=== PATIENT | male | born 1960 | race Asian ===

== ENCOUNTER 2018-03-22 21:15 | Emergency (ER) | payer OTHER ==
[2018-03-22 21:29] VITALS: TEMP 98.2; BMI 30.7
--- NOTE | 2018-03-22 21:31 | PDOC ---
Rapid Medical Evaluation Chief Complaint: Blood Pressure Problem Time Seen by Provider: 03/22/18 21:25 Medical Evaluation: 03/22/18 21:25 I have performed a brief in-person evaluation of this patient. The patient presents with a chief complaint of: headache with sweating. Checked BP and found to be very high/ took multiple BP medication due to concerns . denies current complaints Pertinent physical exam findings: pale, some SOB at time but not now. I have ordered the following: ekg The patient will proceed to the ED for further evaluation 03/22/18 21:27 03/22/18 21:30 Discharge Disposition - Diagnosis History of blood pressure problems - Referrals - Patient Instructions - Post Discharge Activity
--- NOTE | 2018-03-22 23:12 | PDOC ---
Attending Attestation - Resident Resident Name: Cecy Rankin - ED Attending Attestation I have performed the following: I have examined & evaluated the patient, The case was reviewed & discussed with the resident, I agree w/resident's findings & plan, Exceptions are as noted - HPI HPI: 03/22/18 23:42 57 yo M h/o HTN, and DM He checked his BP at home it was 207/104 When this occurred, he developed head pain and blurry vision Denies chest pain, shortness of breath, nausea, vomiting He took his home meds prior to arrival in the ER C/o head pain, occipital PMD: Dr Galarza - Physicial Exam PE: 03/22/18 23:47 GENERAL: The patient is in no acute distress LUNGS: Breath sounds equal, clear to auscultation bilaterally HEART:Regular rate and rhythm, normal S1 and S2 without murmur, rub or gallop. ABDOMEN: Soft, nontender EXTREMITIES: Normal range of motion, no edema. NEUROLOGICAL: Cranial nerves II through XII grossly intact. Normal speech. No focal neurological deficits. MUSCULOSKELETAL: Back non-tender to palpation SKIN: Warm, Dry, normal turgor, no rashes or lesions noted. - Medical Decision Making 03/22/18 23:48 Twelve-lead EKG was performed and reviewed by me. There is normal sinus rhythm with a normal rate of 72 bpm. The axis is normal. The intervals are normal. There are no ST or T wave abnormalities. Pt presents to the ER due to elevated BP He took his home medications Upon arrival to the ER, BP nml Pt continues to have mild head pressure Has not taken tylenol for pain Refusing to stay for head ct Review of chart reveals neg stress test MRI with microvascular changes Will plan to discharge to home Follow up with PMD
--- NOTE | 2018-03-22 23:40 | PDOC ---
History of Present Illness - General Chief Complaint: Blood Pressure Problem Stated Complaint: HYPERTENSION Time Seen by Provider: 03/22/18 21:25 History Source: Patient - History of Present Illness Initial Comments: 03/22/18 23:56 57M w/ pmhx of HTN, DM, chronic tobacco user presents with complaints of elevated blood pressure today. He states his home BP reached 201/104 and had associated symptoms of blurred vision and sweating. As a result, he called EMS to be brought to the hospital for further evaluation. During this time, he denied alejandro/d, n/v, f/c, chest pain, sob, abd pain, urinary/bowel symptoms, leg swelling, difficulties walking. He states that has been taking his BP meds for many years, but only takes his medication when he sees that his BP is high. Of note, he was recently seen by his PCP, Dr. Galarza, in January. He reports he had a stress test and EKG done both of which were normal. PCP: Dr. Galarza PMHx: HTN, DM PSHx: nasal surgery, umbilical hernia repair FHx: Brother- HTN, DM Social: Current smoker, smokes 2 PPD x30 years; Denies alcohol or rec drug use. Pt currently works at a [employer]. Past History - Past Medical History Allergies/Adverse Reactions: Allergies Allergy/AdvReac Type Severity Reaction Status Date / Time No Known Allergies Allergy Verified 03/22/18 21:29 Home Medications: Ambulatory Orders Atenolol [Tenormin -] 100 mg PO DAILY 03/22/18 Sitagliptin Phos/Metformin HCl [Janumet Xr 50-1,000 mg Tablet] 1 each PO DAILY 03/22/18 Asthma: Yes COPD: No Diabetes: Yes HTN: Yes Hypercholesterolemia: Yes - Surgical History Abdominal Surgery: Yes (HERNIA) - Suicide/Smoking/Psychosocial Hx Smoking History: Current every day smoker Number of Cigarettes Smoked Daily: 40 Information on smoking cessation initiated: No Review of Systems - Review of Systems Able to Perform ROS?: Yes Is the patient limited Icelandic proficient: No Constitutional: Yes: Diaphoresis. No: Chills, Fever, Weakness HEENTM: Yes: Blurred Vision Respiratory: No: Orthopnea Cardiac (ROS): No: Chest Pain, Lightheadedness, Palpitations, Chest Tightness ABD/GI: No: Constipated, Diarrhea, Nausea, Vomiting Musculoskeletal: No: Back Pain Neurological: Yes: Headache *Physical Exam - Vital Signs Last Vital Signs Temp Pulse Resp BP Pulse Ox 98.2 F 75 18 132/86 98 03/22/18 21:23 03/22/18 21:23 18 21:23 03/22/18 21:23 03/22/18 21:23 - Physical Exam Comments: 03/23/18 00:07 GEN: NAD. AAOx3. HEENT: AT/NC. EOMI. KEANU. Facial symmetry noted. Moist mucus membranes. Neck: Supple, no LAD/JVD. Lungs: CTA B/L. No wheezes noted. Symmetric chest rise. Heart: RRR. Normal S1, S2. No murmurs noted. Abd: Obese. Soft NT/ND. +BS in all 4Q's. No masses/bruits noted. MSK: No peripheral edema noted. 5/5 muscle strength u/l b/l extremities. Neuro: CN II-XII intact. B/l facial sensation intact. Responds to commands. Medical Decision Making - Medical Decision Making 03/23/18 00:10 57M w/ pmhx of HTN, DM, chronic tobacco user presents with complaints of high blood pressure earlier today. -Pt BP redrawn, now 132/86 and stable. Pt's vitals unremarkable at this time. Pt complaining of headache that started during interview, PO Tylenol given. Pt had recent nuclear stress test and echocardiogram done this past January, and recently seen by Dr. Galarza 1 month ago. Explained to pt need to perform head CT that to r/o any possible new onset intracranial abnormalities, but pt deferred imaging at this time. Pt's BP stable, has no neurological deficits, and no significant complaints during interview. Instructed pt to follow up with Dr. Galarza for further evaluation of current BP medication regimen. DC to home. Case discussed with Dr. Aguilar. -Cecy Rankin, DO - PGY1 *DC/Admit/Observation/Transfer Diagnosis at time of Disposition: History of blood pressure problems - Discharge Dispostion Disposition: HOME Condition at time of disposition: Good Decision to Admit order: No - Referrals Referrals: Megan Galarza MD [Primary Care Provider] - - Patient Instructions Printed Discharge Instructions: DI for High Blood Pressure, How to Monitor Your Blood Pressure at Home Additional Instructions: You were seen in the ED for complaints of high blood pressure. In the ED, you were evaluated and found to have no acute condition at this time. Your blood pressure in the hospital was normal. You were given Tylenol for your headache. There is no need for hospitalization. You are being discharged home. Please continue taking your home medications as directed. Please also reduce your tobacco use as this can worsen your symptoms. Please follow up with your primary care physician, Dr. Galarza, within 1 week for your symptoms. If you experience worsening headaches, vision changes, persistent chest pain, shortness of breath, difficulty walking, problems with balance and coordination , please proceed to your nearest emergency room immediately. - Post Discharge Activity
[2018-03-22] MEDS ORDERED: ACETAMINOPHEN 325 MG TABLET (FP) PO ONE (23:56)
[2018-03-22] MEDS ORDERED: ACETAMINOPHEN 325 MG TABLET (FP) ONE (23:59)
[2018-03-23 00:02] VITALS: BP 130/74; PULSE 74
--- NOTE | 2018-03-23 16:29 | EKG ---
Test Reason : Blood Pressure : / mmHG Vent. Rate : 073 BPM Atrial Rate : 073 BPM P-R Int : 156 ms QRS Dur : 100 ms QT Int : 370 ms P-R-T Axes : 071 -05 044 degrees QTc Int : 407 ms NORMAL SINUS RHYTHM POSSIBLE LEFT ATRIAL ENLARGEMENT BORDERLINE ECG NO PREVIOUS ECGS AVAILABLE Confirmed by MD Nikki, Tan ([id number]) on 03/23/2018 4:29:10 PM Referred By: Confirmed By:Tan Jordan MD
--- NOTE | 2018-03-24 14:11 | EKG ---
Test Reason : Blood Pressure : / mmHG Vent. Rate : 072 BPM Atrial Rate : 072 BPM P-R Int : 148 ms QRS Dur : 106 ms QT Int : 382 ms P-R-T Axes : 073 002 045 degrees QTc Int : 418 ms NORMAL SINUS RHYTHM POSSIBLE LEFT ATRIAL ENLARGEMENT INCOMPLETE RIGHT BUNDLE BRANCH BLOCK BORDERLINE ECG WHEN COMPARED WITH ECG OF 22-MAR-2018 21:32, NO SIGNIFICANT CHANGE WAS FOUND Confirmed by LUZMARIA LEIVA, JOYCE ([id number]) on 03/24/2018 2:10:41 PM Referred By: Confirmed By:JOYCE DUTTA MD
== END 2018-03-23 00:03 | disposition home or self-care (01) ==
LOC: JER 21:15
DX: I10 Essential (primary) hypertension (principal); E78.00 Pure hypercholesterolemia, unspecified; E11.9 Type 2 diabetes mellitus without complications; Z79.84 Long term (current) use of oral hypoglycemic drugs; F17.210 Nicotine dependence, cigarettes, uncomplicated
CPT/HCPCS: 93005; 93010; 99282-25

== ENCOUNTER 2018-03-30 18:17 | Emergency (ER) | payer OTHER ==
--- NOTE | 2018-03-30 18:35 | PDOC ---
Rapid Medical Evaluation Chief Complaint: Blood Pressure Problem Time Seen by Provider: 03/30/18 18:32 Medical Evaluation: Allergies Allergy/AdvReac Type Severity Reaction Status Date / Time No Known Allergies Allergy Verified 03/22/18 21:29 03/30/18 18:32 I have performed a brief in person evaluation. The patient presents with a CC of : HTN HPI: Pt is a 57 YO male who has a hx HTN and states he has been checking it at home and it is "high." Pt denies HOLLAND, denies visual disturbances, denies CP. Pt 's BP is 123/79 at triage. PE: Skin: Clear Lungs: Clear Heart: RRR MS: Moves all extremities without difficulty Neuro: Alert Psych: Appropriate affect I have ordered the following: nothing at this time. The patient will proceed to the ED for further evaluation. Discharge Disposition - Diagnosis Hypertension Qualifiers: Hypertension type: unspecified Qualified Code(s): I10 - Essential (primary) hypertension - Referrals Referrals: Megan Galarza MD [Primary Care Provider] - - Patient Instructions - Post Discharge Activity
[2018-03-30 18:40] VITALS: BP 123/79; PULSE 70; TEMP 98.6; BMI 29.8
--- NOTE | 2018-03-30 20:06 | PDOC ---
History of Present Illness - General Chief Complaint: Blood Pressure Problem Stated Complaint: Blood Pressure Problem Time Seen by Provider: 03/30/18 18:32 - History of Present Illness Initial Comments: 03/30/18 20:01 57 yo M with h/o HLD, DM, HTN who p/w HTN. Patient reports isolated elevated SBP of 160 this evening. Checks BP 2-3 / day. States that BP 114/60 10 minutes before elevated BP reading. Compliant with daily Amlodipine. Currently asymptomatic. Patient denies N/V, F,C, palpitations, orthopnea, PND, leg pain/swelling, CP, SOB, urinary complaints, abdominal pain, diarrhea, constipation, lightheadedness , weakness, sensory changes. PMHx: as noted above ROS: as noted Allergies: NKDA Past History - Past Medical History Allergies/Adverse Reactions: Allergies Allergy/AdvReac Type Severity Reaction Status Date / Time No Known Allergies Allergy Verified 03/30/18 18:36 Home Medications: Ambulatory Orders Atenolol [Tenormin -] 100 mg PO DAILY 03/22/18 Sitagliptin Phos/Metformin HCl [Janumet Xr 50-1,000 mg Tablet] 1 each PO DAILY 03/22/18 Asthma: Yes COPD: No Diabetes: Yes HTN: Yes Hypercholesterolemia: Yes - Surgical History Abdominal Surgery: Yes (HERNIA) - Suicide/Smoking/Psychosocial Hx Smoking History: Current some day smoker Number of Cigarettes Smoked Daily: 40 Information on smoking cessation initiated: Yes 'Breaking Loose' booklet given: 03/30/18 Hx Alcohol Use: No Drug/Substance Use Hx: No Review of Systems - Review of Systems Comments:: 03/30/18 20:01 GENERAL/CONSTITUTIONAL: No fever or chills. No weakness. HEAD, EYES, EARS, NOSE AND THROAT: No change in vision. No ear pain or discharge. No sore throat. CARDIOVASCULAR: No chest pain or shortness of breath RESPIRATORY: No cough, wheezing, or hemoptysis. GASTROINTESTINAL: No nausea, vomiting, diarrhea or constipation. GENITOURINARY: No dysuria, frequency, or change in urination. MUSCULOSKELETAL: No joint or muscle swelling or pain. No neck or back pain. SKIN: No rash NEUROLOGIC: No headache, vertigo, loss of consciousness, or change in strength/ sensation. ENDOCRINE: No increased thirst. No abnormal weight change HEMATOLOGIC/LYMPHATIC: No anemia, easy bleeding, or history of blood clots. ALLERGIC/IMMUNOLOGIC: No hives or skin allergy. *Physical Exam - Vital Signs Last Vital Signs Temp Pulse Resp BP Pulse Ox 98.6 F 70 18 123/79 100 03/30/18 18:36 03/30/18 18:36 03/30/18 18:36 03/30/18 18:36 03/30/18 18:36 - Physical Exam Comments: 03/30/18 20:01 GENERAL: Awake, alert, and fully oriented, in no acute distress HEAD: No signs of trauma, normocephalic, atraumatic EYES: PERRLA, EOMI, sclera anicteric, conjunctiva clear ENT: Hearing grossly normal, nares patent, oropharynx clear without exudates. Moist mucosa NECK: Normal ROM, supple, no lymphadenopathy, JVD, or masses LUNGS: No distress, speaks full sentences, clear to auscultation bilaterally HEART: Regular rate and rhythm, normal S1 and S2, no murmurs, rubs or gallops, peripheral pulses normal and equal bilaterally. ABDOMEN: Soft, nontender, normoactive bowel sounds. No guarding, no rebound. No masses EXTREMITIES : Normal inspection, Normal range of motion, no edema. No clubbing or cyanosis. NEUROLOGICAL: Cranial nerves II through XII grossly intact. Normal speech, normal gait, no focal sensorimotor deficits Medical Decision Making - Medical Decision Making 03/30/18 20:40 57 yo M with h/o HLD, DM, HTN who p/w HTN. VSS, AF. Currently asymptomatic. Absent physical exam findings. Pt. w/out evidence of HTN emergency, end organ dysfunction. Low suspicion FL, PE, Pulm edema. ED Course: Pt. stable for d/c with return precautions. Advised to f/u with PMD. *DC/Admit/Observation/Transfer Diagnosis at time of Disposition: Hypertension Qualifiers: Hypertension type: unspecified Qualified Code(s): I10 - Essential (primary) hypertension - Discharge Dispostion Condition at time of disposition: Stable Decision to Admit order: No - Referrals Referrals: Megan Galarza MD [Primary Care Provider] - - Patient Instructions Printed Discharge Instructions: DI for High Blood Pressure Additional Instructions: Please return to the emergency department with any new or worsening symptoms or concerns. Please follow up with your primary care physician within 72 hours. - Post Discharge Activity - Attestations Physician Attestion: 03/30/18 20:05 I attest to the information provided in this note.
--- NOTE | 2018-03-30 20:48 | PDOC ---
Attending Attestation - Resident Resident Name: Zia Anderson - ED Attending Attestation I have performed the following: I have examined & evaluated the patient, The case was reviewed & discussed with the resident, I agree w/resident's findings & plan, Exceptions are as noted - Medical Decision Making 03/30/18 20:42 A portion of this note was documented by scribe services under my direction. I have reviewed the details of the note, within reason, and agree with the documentation with the following case summary and management plan written by me. Patient treated in the ED. Nursing notes are reviewed and incorporated into the medical decision-making. Vital signs reviewed. Vital Signs Temp Pulse Resp BP Pulse Ox 98.6 F 70 18 123/79 100 03/30/18 18:36 03/30/18 18:36 03/30/18 18:36 03/30/18 18:36 03/30/18 18:36 57-year-old male with past mental history of hypertension, diabetes, hyperlipidemia presents with asymptomatic hypertension to systolic to 160s. The patient frequently checks blood pressure 3 times a day. He states that he gets nervous when he doesn't check his blood pressure. Never endorse any chest pain or shortness of breath or palpitations. Patient reports appearance to his hypertension medications. Noted is systolic to 160 so came to the ER. Patient blood pressure is 123/79 and with no acute findings. I advised patient that he should follow-up with his private care physician. At this time, no indication for any further workup. I advised that he continues to his blood pressure medications. I suspect the patient is feeling anxious when he does not take his own blood pressure home. I advised him to space out his blood pressure checks once every several days. Patient family at bedside who agrees with the plan. Patient wanted to go home. <Roberto Street - Last Filed: 03/30/18 20:42> - HPI HPI: 03/30/18 20:51 The patient is a 57 year old male with a significant PMH of hypertension, diabetes, asthma, and hypercholesterolemia who presents to the emergency department with elevated blood pressure since earlier today. The patient reports that he was at home today when he measured his blood pressure to be above his normal baseline. He states that he measured it at about 160 systolic when its usually about 114. The patient denies any other symptoms. He denies any fever, chills, nausea, vomiting, diarrhea, constipation or urinary symptoms. He denies any chest pain, shortness of breath, headache or dizziness. The patient denies any other complaints. PCP:Dr. Galarza - Physicial Exam PE: 03/30/18 20:51 GENERAL: Awake, alert, and fully oriented, in no acute distress HEAD: No signs of trauma EYES: PERRLA, EOMI, sclera anicteric, conjunctiva clear ENT: Auricles normal inspection, hearing grossly normal, nares patent, oropharynx clear without exudates. Moist mucosa NECK: Normal ROM, supple, JVD, or masses EXTREMITIES: Normal range of motion, no edema. No clubbing or cyanosis. No cords, erythema, or tenderness NEUROLOGICAL: Cranial nerves II through XII grossly intact. Normal speech, normal gait SKIN: Warm, Dry, normal turgor, no rashes or lesions noted. Documentation prepared by Jean Paul Franco, acting as biomedical engineering director for Roberto Street MD. <Jean Paul Franco - Last Filed: 03/30/18 20:51>
== END 2018-03-30 21:57 | disposition home or self-care (01) ==
LOC: JER 18:17
DX: I10 Essential (primary) hypertension (principal); E11.9 Type 2 diabetes mellitus without complications; Z79.84 Long term (current) use of oral hypoglycemic drugs; E78.00 Pure hypercholesterolemia, unspecified; J45.909 Unspecified asthma, uncomplicated
CPT/HCPCS: 99281-25

== ENCOUNTER 2018-04-23 20:27 | Emergency (ER) | payer OTHER ==
[2018-04-23 20:41] VITALS: TEMP 98; BMI 30.7
--- NOTE | 2018-04-23 20:47 | PDOC ---
History of Present Illness - General Chief Complaint: Chest Pain Stated Complaint: CHEST PAIN Time Seen by Provider: 04/23/18 20:30 History Source: Patient Exam Limitations: Language Barrier - History of Present Illness Initial Comments: 57 yo M with h/o HLD, DM, HTN BIBEMS because earlier today he experienced "severe" Sub-sternal chest pain rated 4/10 in intensity. He said the chest pain was so bad that he vomited. The vomitus was NBNB. He states this has never happened before. He currently has no chest pain. He also experienced a bad headache earlier today which has now resolved. When asked why he is in the emergency room he states because my blood pressure is not under control. At bedside his BP is 119/81. He currently has no complaints but was in significant pain earlier today. He denies any SOB or difficulty breathing. Denies any current dizziness, blurry vision, weakness, numbness, tingling, or chills. PCP: Dr. Galarza Allergies: NKA, NKDA Social Hx: Smokes 1 PPD Past History - Past Medical History Allergies/Adverse Reactions: Allergies Allergy/AdvReac Type Severity Reaction Status Date / Time No Known Allergies Allergy Verified 04/23/18 20:40 Home Medications: Ambulatory Orders Atenolol [Tenormin -] 100 mg PO DAILY 03/22/18 Sitagliptin Phos/Metformin HCl [Janumet Xr 50-1,000 mg Tablet] 1 each PO DAILY 03/22/18 Atenolol [Tenormin] 150 mg PO HS 04/23/18 Asthma: Yes COPD: No Diabetes: Yes HTN: Yes Hypercholesterolemia: Yes - Surgical History Abdominal Surgery: Yes (HERNIA) - Suicide/Smoking/Psychosocial Hx Smoking History: Current every day smoker Have you smoked in the past 12 months: No Number of Cigarettes Smoked Daily: 40 Information on smoking cessation initiated: No 'Breaking Loose' booklet given: 03/30/18 Hx Alcohol Use: No Drug/Substance Use Hx: No Review of Systems - Review of Systems Comments:: CONSTITUTIONAL: Absent: fever, no chills, no fatigue EYES: Absent: visual changes ENT: Absent: ear pain, no sore throat CARDIOVASCULAR: Present: Chest pain Absent: no palpitations RESPIRATORY: Absent: cough, no SOB GI: Present: Nausea, Vomiting Absent: abdominal pain, no constipation, no diarrhea GENITOURINARY: Absent: dysuria, no frequency, no hematuria MUSKULOSKELETAL: Absent: back pain, no arthralgia, no myalgia SKIN: Absent: rash NEURO: Present: headache *Physical Exam - Vital Signs Last Vital Signs Temp Pulse Resp BP Pulse Ox 98.0 F 72 18 117/73 96 04/23/18 20:40 04/23/18 20:40 04/23/18 20:40 04/23/18 20:40 04/23/18 20:40 - Physical Exam Comments: GENERAL: Well-appearing, well-nourished. No apparent distress. HEENT: Normocephalic, atraumatic. PERRL, EOM intact. CARDIOVASCULAR: Normal S1, S2. Regular rate and rhythm. PULMONARY: Clear to auscultation bilaterally. ABDOMEN: Soft, non-distended, non-tender. EXTREMITIES: Normal ROM in all four extremities. No gross deformities. SKIN: Warm, dry. No rash NEUROLOGICAL: No focal neurological deficits. Moderate Sedation - Procedure Monitoring Vital Signs: Procedure Monitoring Vital Signs Temperature 98.0 F 04/23/18 20:40 Pulse Rate 72 04/23/18 20:40 Respiratory Rate 18 04/23/18 20:40 Blood Pressure 117/73 04/23/18 20:40 O2 Sat by Pulse Oximetry (%) 96 04/23/18 20:40 ED Treatment Course - LABORATORY CBC & Chemistry Diagram: 04/23/18 21:26 04/23/18 21:25 Medical Decision Making - Medical Decision Making 57 yo M with h/o HLD, DM, HTN BIBEMS because earlier today he experienced "severe" Sub-sternal chest pain rated 4/10 in intensity. He said the chest pain was so bad that he vomited. The vomitus was NBNB. DDx IBNLT: ACS/FL, GERD, pancreatitis, costochondritis, pulm edema, pleural effusion. Plan: Cbc, Cmp, Trop x 2, Lipase, CXR, EKG, re-assess. Labs WNL, CXR unremarkable. Trop x 2 negative. Patient has not experienced any chest pain, arrhythmias, or abnormal vitals since 2 hours prior to arrival. Will DC patient with Cardio FU. *DC/Admit/Observation/Transfer Diagnosis at time of Disposition: Atypical chest pain - Discharge Dispostion Disposition: HOME Condition at time of disposition: Stable Decision to Admit order: No - Referrals Referrals: Ramin Schmidt MD [Staff Physician] - - Patient Instructions Printed Discharge Instructions: DI for Atypical Chest Pain Additional Instructions: You came into the ER with chest pain. You did not have any chest pain in the ER. We made sure you did not have a heart attack. Please make sure to schedule a follow up appointment with your rib bender in the next 3 days - Dr. Heart. Come back to the ER if your pain worsens, you start vomiting, or have any other new or worsening concerns. Thank you for coming to the [facility] ER. We hope you feel better soon! Print Language: SERBIAN - Post Discharge Activity
[2018-04-23 21:35] LABS: BASO % 0.6 % (0-2.0); EOS % 2.3 % (0-4.5); HEMATOCRIT 36.9 % (35.4-49); HEMOGLOBIN 13.2 GM/dL (11.7-16.9); MCH 32.2 pg (25.7-33.7); MCHC 35.9 g/dl (32.0-35.9); MEAN CELL VOLUME 89.8 fl (80-96); MEAN PLT VOLUME 8.2 fl (7.5-11.1); MONO % 6.8 % (3.8-10.2); NEUT % 61.3 % (42.8-82.8); PLATELET COUNT 296 K/MM3 (134-434); RBC 4.11 M/mm3 (4.00-5.60); RDW 14.1 % (11.9-15.9); WHITE BLOOD COUNT 8.7 K/mm3 (4.0-10.0)
[2018-04-23 22:02] LABS: ALBUMIN 3.8 g/dl (3.4-5.0); ALK PHOS 86 U/L (45-117); ANION GAP 7 MMOL/L (8-16); BILIRUBIN,TOTAL 0.4 mg/dL (0.2-1); BLOOD UREA NITROGEN 19 mg/dL (7-18); CALCIUM 9.3 mg/dL (8.5-10.1); CHLORIDE 102 mmol/L (98-107); CO2 29 mmol/L (21-32); CREATININE 0.9 mg/dL (0.55-1.3); GLUCOSE,RANDOM 182 mg/dL (74-106); LIPASE 142 U/L (73-393); SGOT/AST 14 U/L (15-37); SGPT/ALT 24 U/L (13-61); SODIUM 138 mmol/L (136-145); TOT PROT 6.7 g/dl (6.4-8.2)
--- NOTE | 2018-04-23 22:03 | PDOC ---
Attending Attestation - HPI HPI: This patient is a 57 M, PMHx of HLD, DM, HTN, who was BIBA for chest pain 2 hours prior to arrival to the ER. Patient rates chest pain 4/10, with associated nausea,vomting, headache. Patient states that he has had this type of headache in past. Patient reports no chest pain while in the ER. No current complaints. Patient denies taking any medication for the pain. He denies any SOB or difficulty breathing. Denies any current dizziness, blurry vision, weakness, numbness, tingling, or chills. Social Hx: smokes a pack a day PCP: Dr. Galarza <Willow Hung - Last Filed: 04/23/18 23:43> - Resident Resident Name: Isak Grey - ED Attending Attestation I have performed the following: I have examined & evaluated the patient, The case was reviewed & discussed with the resident, I agree w/resident's findings & plan - Physicial Exam PE: 04/25/18 01:08 Agree with resident exam - Medical Decision Making 04/25/18 01:09 Pt comes for elevated BP at home. He states that he took extra BP meds and it came down. Pt feels that he needs a higher dose of meds. Pt will be sent back to his PMD for medication adjustment. 04/25/18 01:10 All labs and serial cardiac enzymes are normal. <Bella Sinha - Last Filed: 04/25/18 01:11>
[2018-04-24 00:31] VITALS: BP 129/75; PULSE 75
--- NOTE | 2018-04-25 12:24 | EKG ---
Test Reason : Blood Pressure : / mmHG Vent. Rate : 062 BPM Atrial Rate : 062 BPM P-R Int : 166 ms QRS Dur : 114 ms QT Int : 412 ms P-R-T Axes : 069 004 047 degrees QTc Int : 418 ms NORMAL SINUS RHYTHM POSSIBLE LEFT ATRIAL ENLARGEMENT LOW VOLTAGE QRS INCOMPLETE RIGHT BUNDLE BRANCH BLOCK BORDERLINE ECG WHEN COMPARED WITH ECG OF 22-MAR-2018 23:44, NO SIGNIFICANT CHANGE WAS FOUND Confirmed by ALBER BELTRÁN MD ([id number]) on 04/25/2018 12:23:59 PM Referred By: Confirmed By:ALBER BELTRÁN MD
== END 2018-04-24 01:58 | disposition home or self-care (01) ==
LOC: JER 20:27
DX: R07.89 Other chest pain (principal); I10 Essential (primary) hypertension; E78.5 Hyperlipidemia, unspecified; E11.9 Type 2 diabetes mellitus without complications; J45.909 Unspecified asthma, uncomplicated; F17.210 Nicotine dependence, cigarettes, uncomplicated; Z79.84 Long term (current) use of oral hypoglycemic drugs
CPT/HCPCS: 36415; 71046-TC-FY; 80053; 83690; 84484; 85025; 93005; 93010; 99285-25

== ENCOUNTER 2018-04-25 15:55 | Emergency (ER) | payer OTHER ==
[2018-04-25 16:11] VITALS: BMI 30.3
--- NOTE | 2018-04-25 16:23 | PDOC ---
History of Present Illness - General Chief Complaint: Cold Symptoms Stated Complaint: HIGH BLOOD ,SOB Time Seen by Provider: 04/25/18 16:14 - History of Present Illness Initial Comments: 04/25/18 16:22 57 yo M with h/o HTN, HLD, DM who p/w myalgias, and headache. Patient reports ongoing, dull posterior headache x 2-3 days with worsening seveirty overnight. No associated photo/phonophobia, neck stiffness/meningismus, aura, vision change /scintillating scotomas, convulsions. Also endorses BL shoulder, and BL lateral neck pain/cramping, with no identifiable triggers or alleviators. Attempted analgesia yesterday evening with ASA, no relief. + Subjective fevers and chills x 1 day. + diaphoresis x 1 day. Patient denies cough, wheezing, orthopnea, PND, leg pain/swelling, dysphagia, N/ V, CP, SOB, urinary complaints, abdominal pain, diarrhea, constipation, hematuria, BPR, lightheadedness, weakness, sensory changes. PMHx: as noted above. Denies h/o ACS/AZ, stent placement, CABG ROS: as noted SHx: 1 ppd tobacco x 15 years. Denies Etoh, IVDA. Allergies: NKDA Past History - Past Medical History Allergies/Adverse Reactions: Allergies Allergy/AdvReac Type Severity Reaction Status Date / Time No Known Allergies Allergy Verified 04/25/18 16:11 Home Medications: Ambulatory Orders Atenolol [Tenormin -] 100 mg PO DAILY 03/22/18 Sitagliptin Phos/Metformin HCl [Janumet Xr 50-1,000 mg Tablet] 1 each PO BID 04/27 Atenolol [Tenormin] 50 mg PO HS 04/23/18 Amlodipine Besylate/Benazepril [Lotrel 5-20 mg Capsule] 1 each PO BID 04/25/18 Clopidogrel Bisulfate [Plavix] 75 mg PO DAILY 04/25/18 Lolita-3/Dha/Epa/Fish Oil [Lolita 3 500 Softgel] 2 each PO BID 04/25/18 Asthma: Yes COPD: No CHF: No Diabetes: Yes HTN: Yes Hypercholesterolemia: Yes - Surgical History Abdominal Surgery: Yes (HERNIA) - Suicide/Smoking/Psychosocial Hx Smoking History: Current every day smoker Have you smoked in the past 12 months: No Number of Cigarettes Smoked Daily: 20 Information on smoking cessation initiated: No 'Breaking Loose' booklet given: 03/30/18 Hx Alcohol Use: No Drug/Substance Use Hx: No Review of Systems - Review of Systems Comments:: 04/25/18 16:22 GENERAL/CONSTITUTIONAL: No fever or chills. No weakness. HEAD, EYES, EARS, NOSE AND THROAT: No change in vision. No ear pain or discharge. No sore throat. CARDIOVASCULAR: No chest pain or shortness of breath RESPIRATORY: No cough, wheezing, or hemoptysis. GASTROINTESTINAL: No nausea, vomiting, diarrhea or constipation. GENITOURINARY: No dysuria, frequency, or change in urination. MUSCULOSKELETAL: +muscle pain. No neck or back pain. SKIN: No rash NEUROLOGIC: + headache. No vertigo, loss of consciousness, or change in strength /sensation. ENDOCRINE: No increased thirst. No abnormal weight change HEMATOLOGIC/LYMPHATIC: No anemia, easy bleeding, or history of blood clots. ALLERGIC/IMMUNOLOGIC: No hives or skin allergy. *Physical Exam - Vital Signs Last Vital Signs Temp Pulse Resp BP Pulse Ox 97.8 F 77 16 127/66 100 04/25/18 15:55 04/25/18 15:55 04/25/18 15:55 04/25/18 15:55 04/25/18 15:55 - Physical Exam Comments: 04/25/18 16:22 GENERAL: Awake, alert, and fully oriented, in no acute distress HEAD: No signs of trauma, normocephalic, atraumatic EYES: PERRLA, EOMI, sclera anicteric, conjunctiva clear ENT: Hearing grossly normal, nares patent, oropharynx clear without exudates. Moist mucosa Neg Brudinski and kernig sign. NECK: Normal ROM, supple, no lymphadenopathy, JVD, or masses LUNGS: BL insp rhonci. Absent rales. No distress, speaks full sentences. HEART: Regular rate and rhythm, normal S1 and S2, no murmurs, rubs or gallops, peripheral pulses normal and equal bilaterally. ABDOMEN: Soft, nontender, normoactive bowel sounds. No guarding, no rebound. No masses EXTREMITIES : Normal inspection, Normal range of motion, no edema. No clubbing or cyanosis. SKIN: Warm, Dry, normal turgor, no rashes or lesions noted Moderate Sedation - Procedure Monitoring Vital Signs: Procedure Monitoring Vital Signs Temperature 97.8 F 04/25/18 15:55 Pulse Rate 77 04/25/18 15:55 Respiratory Rate 16 04/25/18 15:55 Blood Pressure 127/66 04/25/18 15:55 O2 Sat by Pulse Oximetry (%) 100 04/25/18 15:55 ED Treatment Course - LABORATORY CBC & Chemistry Diagram: 04/25/18 14:53 04/25/18 14:53 Medical Decision Making - Medical Decision Making 04/25/18 16:44 57 yo M with h/o HTN, HLD, DM who p/w myalgias, and headache, and dull posterior headache. VSS, AF, A&Ox3. Lungs BL LL wheezing. Physical exam otherwise unremarkable. ACS/AZ r/o. R/o PNA. Will consider COPD, asthma, Influenza. Absent nuchal rigidity, neg burdinski/kernig, neuro deficits. Low suspicion SAH, hemaotma, meningitis. Will provide analgesia. ED Course: CBC,CMP,CARDIAC EKG, CXR Tylenol, NS, Reglan CTH 04/25/18 17:16 Flu: Neg 04/25/18 17:39 CBC, CMP: Unremarkable 04/25/18 18:16 CXR: Unremarkable Patient headache improved. Pending CTH report Patient stable for d/c with return precautions. Advised to f/u with PMD Patient endorsed to night team. If CTH negative, stable for d/c with return precautions. Counseled on pain control. *DC/Admit/Observation/Transfer Diagnosis at time of Disposition: Headache Qualifiers: Headache type: tension-type Headache chronicity pattern: chronic headache Intractability: not intractable Qualified Code(s): G44.229 - Chronic tension- type headache, not intractable - Discharge Dispostion Condition at time of disposition: Stable Decision to Admit order: No - Referrals Referrals: Megan Galarza MD [Primary Care Provider] - - Patient Instructions Printed Discharge Instructions: DI for Headache Additional Instructions: Please return to the emergency department with any new or worsening symptoms or concerns. Please follow up with your primary care physician within 72 hours. Can take Iburprofen 600 mg every 4-6 hours for pain. - Post Discharge Activity - Attestations Physician Attestion: 04/25/18 16:23 I attest to the information provided in this note.
[2018-04-25] MEDS ORDERED: SODIUM CHLORIDE 1,000 ML IV STA (16:50)
[2018-04-25] MEDS ORDERED: ACETAMINOPHEN 1000 MG/100 ML VIAL (NON FORMULARY) IVPB ONE (16:50)
[2018-04-25] MEDS ORDERED: ACETAMINOPHEN INJECTION 100 ML IVPB ONE (16:58)
[2018-04-25 17:09] LABS: BASO % 0.5 % (0-2.0); HEMOGLOBIN 13.8 GM/dL (11.7-16.9); MCH 32.6 pg (25.7-33.7); MONO % 7.6 % (3.8-10.2)
[2018-04-25] MEDS ORDERED: METOCLOPRAMIDE HCL INJECTION 10 MG/2 ML VIAL IVPUSH ONE (17:24)
[2018-04-25] MEDS ORDERED: METOCLOPRAMIDE HCL INJECTION 10 MG/2 ML VIAL ONE (17:32)
[2018-04-25 17:37] LABS: ALK PHOS 87 U/L (45-117); ANION GAP 9 MMOL/L (8-16); BILIRUBIN,TOTAL 0.2 mg/dL (0.2-1); BLOOD UREA NITROGEN 22 mg/dL (7-18); CALCIUM 9.1 mg/dL (8.5-10.1); CHLORIDE 102 mmol/L (98-107); CO2 27 mmol/L (21-32); GLUCOSE,RANDOM 160 mg/dL (74-106); POTASSIUM 3.9 mmol/L (3.5-5.1); SGOT/AST 21 U/L (15-37); SGPT/ALT 27 U/L (13-61); SODIUM 138 mmol/L (136-145); TOT PROT 6.9 g/dl (6.4-8.2)
[2018-04-25 17:49] LABS: HEMATOCRIT 38.3 % (35.4-49); LYMPH % 27.7 % (8-40); MCHC 36.1 g/dl (32.0-35.9); MEAN CELL VOLUME 90.5 fl (80-96); MEAN PLT VOLUME 8.4 fl (7.5-11.1); NEUT % 62.2 % (42.8-82.8); PLATELET COUNT 313 K/MM3 (134-434); RBC 4.24 M/mm3 (4.00-5.60); RDW 13.7 % (11.9-15.9); WHITE BLOOD COUNT 8.9 K/mm3 (4.0-10.0)
--- NOTE | 2018-04-25 17:58 | PDOC ---
Attending Attestation - Resident Resident Name: Zia Anderson - ED Attending Attestation I have performed the following: I have examined & evaluated the patient, The case was reviewed & discussed with the resident, I agree w/resident's findings & plan, Exceptions are as noted - HPI HPI: 04/25/18 17:53 The patient is a 57-year-old male with a past medical history significant for HTN, HLD, and DM presents to the emergency department with a headache and myalgia. The patient reports 2-3 days of generalized myalgias accompanied with a dull gradual onset posterior headache that radiates down to the shoulders. The patient reports the radiating pain is crampy in nature. He states these symptoms often come on when his blood pressure is high. The patient reports an additional concern of diffuse neck pain and b/l LE pain. HE denies denies neck stiffness or difficulty swallowing reports taking aspirin for the symptoms, without relief. The patient states a new onset symptom of subjective fever and chills. The patient was seen at the ER on 04/23/18 for similar symptoms of a headache and chest pain, with unremarkable workup. Today, denies chest pain, shortness of breath, abdominal pain, N/V/D, urinary symptoms, changes in bowel habits, focal weakness, numbness or tingling. Allergies: NKDA Social history: Current daily smoker. No alcohol or drug use. Surgical history: Hernia repair. PCP: Dr. Galarza. - Physicial Exam PE: 04/25/18 17:58 GENERAL: Awake, alert, and fully oriented, in no acute distress HEAD: No signs of trauma EYES: PERRLA, EOMI, sclera anicteric, conjunctiva clear ENT: Auricles normal inspection, hearing grossly normal, nares patent, oropharynx clear without exudates. Moist mucosa NECK: Normal ROM, supple, no lymphadenopathy, JVD, or masses. No meningismus LUNGS: Breath sounds equal, clear to auscultation bilaterally. No wheezes, and no crackles HEART: Regular rate and rhythm, normal S1 and S2, no murmurs, rubs or gallops ABDOMEN: Soft, nontender, normoactive bowel sounds. No guarding, no rebound. No masses EXTREMITIES: Normal range of motion, no edema. No cords, erythema, or tenderness NEUROLOGICAL: Normal speech, cranial nerves intact, negative pronator drift, 5/ 5 strength in all 4 extremities, normal sensation to light touch in all 4 extremities, normal cerebellar exam, normal gait, normal tone SKIN: Warm, Dry, normal turgor, no rashes or lesions noted. - Medical Decision Making 04/25/18 17:59 57yo M hx HTN, HL, DM presents to the ED with elevated BP, diffuse body pain and headache. Vitals wnl. Exam wnl, no evidence of meningismus and pt is neuro intact. This is pt's second visit to ED for headache. Will obtain CTH. With regards to myalgia's, subjective fever, plan to check labs, flu swab. Will treat symptoms and reassess. 04/25/18 18:59 Labs/flu swab wnl CXR clear on my read Pt currently at CTH Dispo pending CTH and re-evaluation PT signed out to oncoming attending for reassessment, dispo Heart Score/ECG Review #1 04/25/18 18:02 Twelve-lead EKG was performed and reviewed by me. Normal sinus rhythm, rate 65. Normal axis. No ST elevations or T-wave inversions. Intraventricular conduction delay. When compared to EKG from 04/23/2018, no significant changes.
[2018-04-25 19:52] VITALS: BP 117/61; PULSE 70; TEMP 97.9
--- NOTE | 2018-04-26 09:52 | EKG ---
Test Reason : Blood Pressure : / mmHG Vent. Rate : 065 BPM Atrial Rate : 065 BPM P-R Int : 168 ms QRS Dur : 122 ms QT Int : 408 ms P-R-T Axes : 067 -06 049 degrees QTc Int : 424 ms NORMAL SINUS RHYTHM POSSIBLE LEFT ATRIAL ENLARGEMENT NON-SPECIFIC INTRA-VENTRICULAR CONDUCTION DELAY BORDERLINE ECG WHEN COMPARED WITH ECG OF 23-APR-2018 20:48, NO SIGNIFICANT CHANGE WAS FOUND Confirmed by NAVI LEIVA, ANGELIQUE ([id number]) on 04/26/2018 9:52:22 AM Referred By: Confirmed By:ANGELIQUE MCELROY MD
== END 2018-04-25 20:08 | disposition home or self-care (01) ==
LOC: JER 15:55
PROC: 3E033NZ Introduction of Analgesics, Hypnotics, Sedatives into Peripheral Vein, Percutaneous Approach (ICD-10-PCS; principal; 2018-04-25)
PROC: 3E033GC Introduction of Other Therapeutic Substance into Peripheral Vein, Percutaneous Approach (ICD-10-PCS; 2018-04-25)
PROC: 3E0337Z Introduction of Electrolytic and Water Balance Substance into Peripheral Vein, Percutaneous Approach (ICD-10-PCS; 2018-04-25)
DX: G44.229 Chronic tension-type headache, not intractable (principal); I10 Essential (primary) hypertension; E78.5 Hyperlipidemia, unspecified
CPT/HCPCS: 36415; 70450-TC; 71045-TC-FY; 80053; 82550; 84484; 85025; 87804; 93005; 93010; 99283-25; J0131; J7030

== ENCOUNTER 2018-04-26 20:44 | Emergency (ER) | payer OTHER ==
--- NOTE | 2018-04-26 20:51 | PDOC ---
Rapid Medical Evaluation Chief Complaint: Headache Time Seen by Provider: 04/26/18 20:50 Medical Evaluation: Allergies Allergy/AdvReac Type Severity Reaction Status Date / Time No Known Allergies Allergy Verified 04/25/18 16:11 04/26/18 20:50 I have performed a brief in-person evaluation of this patient. The patient presents with a chief complaint of:Headache/ SOB- been checking pressure at home and states is going up and down and his headache is worsening , has vomited x 2 at home, is SOB and anxious Pertinent physical exam findings: sweating/ some hyper ventilating I have ordered the following: EKG , CBC, CMP, PT/INR, Head CT The patient will proceed to the ED for further evaluation. 04/26/18 20:52 04/26/18 21:18
[2018-04-26 20:52] VITALS: BMI 30.4
[2018-04-26 21:48] LABS: INR 0.99 (0.83-1.09); PROTHROMBIN TIME (PATIENT) 11.7 SEC (9.7-13.0)
[2018-04-26 22:08] LABS: ALK PHOS 90 U/L (45-117); ANION GAP 7 MMOL/L (8-16); BILIRUBIN,TOTAL 0.2 mg/dL (0.2-1); BLOOD UREA NITROGEN 19 mg/dL (7-18); CALCIUM 8.9 mg/dL (8.5-10.1); CHLORIDE 105 mmol/L (98-107); CO2 25 mmol/L (21-32); CREATININE 0.9 mg/dL (0.55-1.3); GLUCOSE,RANDOM 183 mg/dL (74-106); POTASSIUM 4.1 mmol/L (3.5-5.1); SGOT/AST 18 U/L (15-37); SGPT/ALT 25 U/L (13-61); SODIUM 137 mmol/L (136-145); TOT PROT 6.7 g/dl (6.4-8.2)
--- NOTE | 2018-04-26 22:46 | PDOC ---
History of Present Illness - General Chief Complaint: Headache Stated Complaint: MIGRAINE Time Seen by Provider: 04/26/18 20:50 - History of Present Illness Initial Comments: 04/26/18 23:00 The patient is a 57-year-old male with a past medical history significant for HTN, HLD, and DM presents to the emergency department for the second night in a row with a headache and 2 episodes of vomiting. The patient reports 4 days of dull gradual onset posterior headache that radiates down to the shoulders associated with a BP of 180. The patient reports the radiating pain is crampy in nature. He states these symptoms often come on when his blood pressure is high. HE denies denies neck stiffness or difficulty swallowing reports taking aspirin for the symptoms, without relief. Patient insists to have his BP treated. Past History - Past Medical History Allergies/Adverse Reactions: Allergies Allergy/AdvReac Type Severity Reaction Status Date / Time No Known Allergies Allergy Verified 04/26/18 20:52 Home Medications: Ambulatory Orders Atenolol [Tenormin -] 100 mg PO DAILY 03/22/18 Sitagliptin Phos/Metformin HCl [Janumet Xr 50-1,000 mg Tablet] 1 each PO BID 04/27 Atenolol [Tenormin] 50 mg PO HS 04/23/18 Amlodipine Besylate/Benazepril [Lotrel 5-20 mg Capsule] 1 each PO BID 04/25/18 Clopidogrel Bisulfate [Plavix] 75 mg PO DAILY 04/25/18 Gloster-3/Dha/Epa/Fish Oil [Gloster 3 500 Softgel] 2 each PO BID 04/25/18 Asthma: Yes COPD: No CHF: No Diabetes: Yes HTN: Yes Hypercholesterolemia: Yes - Surgical History Abdominal Surgery: Yes (HERNIA) - Suicide/Smoking/Psychosocial Hx Smoking History: Never smoked Have you smoked in the past 12 months: No Number of Cigarettes Smoked Daily: 20 'Breaking Loose' booklet given: 03/30/18 Hx Alcohol Use: No Drug/Substance Use Hx: No Review of Systems - Review of Systems Able to Perform ROS?: Yes Is the patient limited Amharic proficient: No Constitutional: No: Symptoms Reported HEENTM: No: Symptoms Reported Respiratory: No: Symptoms reported Cardiac (ROS): No: Symptoms Reported ABD/GI: Yes: See HPI, Vomiting : No: Symptoms Reported Musculoskeletal: No: Symptoms Reported Integumentary: No: Symptoms Reported All Other Systems: Reviewed and Negative *Physical Exam - Vital Signs Last Vital Signs Temp Pulse Resp BP Pulse Ox 97.4 F L 70 18 114/63 100 04/26/18 20:49 04/26/18 20:49 04/26/18 20:49 04/26/18 20:49 04/26/18 20:49 - Physical Exam General Appearance: Yes: Nourished, Appropriately Dressed, Mild Distress HEENT: positive: EOMI, KEANU, Normal ENT Inspection Respiratory/Chest: positive: Lungs Clear, Normal Breath Sounds. negative: Chest Tender, Respiratory Distress Cardiovascular: positive: Regular Rhythm, Regular Rate, S1, S2 Gastrointestinal/Abdominal: positive: Normal Bowel Sounds, Flat, Soft. negative : Tender Musculoskeletal: positive: Normal Inspection. negative: CVA Tenderness Extremity: positive: Normal Capillary Refill, Normal Inspection, Normal Range of Motion Neurologic: positive: Fully Oriented, Alert, Normal Mood/Affect, Normal Response Moderate Sedation - Procedure Monitoring Vital Signs: Procedure Monitoring Vital Signs Temperature 97.4 F L 04/26/18 20:49 Pulse Rate 70 04/26/18 20:49 Respiratory Rate 18 04/26/18 20:49 Blood Pressure 114/63 04/26/18 20:49 O2 Sat by Pulse Oximetry (%) 100 04/26/18 20:49 ED Treatment Course - LABORATORY CBC & Chemistry Diagram: 04/26/18 21:24 04/26/18 21:24 - ADDITIONAL ORDERS Additional order review: Laboratory Results 04/26/18 04/26/18 21:24 21:24 PT with INR 11.70 INR 0.99 Sodium 137 Potassium 4.1 Chloride 105 Carbon Dioxide 25 Anion Gap 7 L BUN 19 H Creatinine 0.9 Creat Clearance w eGFR > 60 Random Glucose 183 H Calcium 8.9 Total Bilirubin 0.2 AST 18 ALT 25 Alkaline Phosphatase 90 Total Protein 6.7 Albumin 4.0 Medical Decision Making - Medical Decision Making 04/26/18 23:32 SAH vs migraine vs meningitis vs other intracranial bleed. There is a recurring history of the patient claiming to have hypertension with no evidence of that during any of his visits. He also he got a brain MRI and a CT head yesterday. However due to the present history of "the worst headache" he ever had, htn and vomiting we will do another CT today to r/o sah. CT negative. Counseled patient that perhaps his BP machine isn't calibrated properly. PAtient says that its a brand new machine and that his BP is normal because he took his BP meds every time he's about to come to the hospital. Counseled patient about migraines and to follow up with his primary care provider and with neurology for his migraines. Nothing in labs, imaging, or his vitals is abnormal. Will discharge with motrin and return precautions. *DC/Admit/Observation/Transfer Diagnosis at time of Disposition: Migraine - Discharge Dispostion Disposition: HOME Condition at time of disposition: Stable Decision to Admit order: No - Referrals Referrals: Megan Galarza MD [Primary Care Provider] - Tian Espinoza MD [Staff Physician] - - Patient Instructions Printed Discharge Instructions: Migraine -- Adult, Migraine Headaches ( Alternative Therapy) Additional Instructions: Come back to the emergency department for any new, worsening or concerning symptoms. Please follow up with Dr. Galarza within the next 2 days. Follow up with Dr. Espinoza for your migraines. - Post Discharge Activity
[2018-04-26 23:08] LABS: BASO % 0.4 % (0-2.0); HEMATOCRIT 37.4 % (35.4-49); HEMOGLOBIN 13.4 GM/dL (11.7-16.9); LYMPH % 29.8 % (8-40); MCH 32.4 pg (25.7-33.7); MCHC 35.9 g/dl (32.0-35.9); MEAN CELL VOLUME 90.2 fl (80-96); MEAN PLT VOLUME 8.5 fl (7.5-11.1); MONO % 6.7 % (3.8-10.2); NEUT % 61.1 % (42.8-82.8); PLATELET COUNT 351 K/MM3 (134-434); RBC 4.15 M/mm3 (4.00-5.60); RDW 13.7 % (11.9-15.9); WHITE BLOOD COUNT 8.8 K/mm3 (4.0-10.0)
[2018-04-26] MEDS ORDERED: IBUPROFEN 600 MG TABLET (FP) PO ONE ×2 (23:31→23:58)
[2018-04-27 00:06] VITALS: BP 131/77; PULSE 72; TEMP 97.9
--- NOTE | 2018-04-27 00:07 | PDOC ---
Attending Attestation - [facility] HPI: 04/27/18 00:08 The patient is a 57 year old male, with a significant past medical history of hypertension, hyperlipidemia and diabetes, who presents to the emergency department with a headache for the past couple of days. The patient was seen in this emergency department three days ago (04/23/18) and again yesterday () with the same complaint. During both of those ED courses, the patient had unremarkable workups and a negative head CT yesterday. Today, the patient rates his headache as 10/10 in severity and reports that it is primarily located on the posterior of his head. He additionally states that he had a couple episodes of nonbilious nonbloody emesis earlier today. The patient states that his blood pressure has been elevated at home. However, the patient has been normotensive on recent emergency department visits (04/23/18; 04/25/18) and again today with a blood pressure of 114/63 mmHg. The patient denies fever, chills, vision changes, shortness of breath or chest pain. Allergies: None reported. Past Surgical History: Hernia Repair. Social History: Current everyday smoker (1 pack/day x 15 years). Denies alcohol or drug use. PCP: Dr. Galarza Documentation prepared by Chacha Ruiz, acting as medical staff services manager for Julianna Hicks MD. - Physicial Exam PE: 04/27/18 00:16 GENERAL: Awake, alert, and fully oriented, in no acute distress. HEAD: No signs of trauma. EYES: PERRLA, EOMI, sclera anicteric, conjunctiva clear. ENT: Auricles normal inspection, hearing grossly normal, nares patent, oropharynx clear without exudates. Moist mucosa. NECK: Normal ROM, supple, no lymphadenopathy, JVD, or masses. No bruits. LUNGS: Breath sounds equal, clear to auscultation bilaterally. No wheezes, and no crackles. HEART: Regular rate and rhythm, normal S1 and S2, no murmurs, rubs or gallops. ABDOMEN: Soft, nontender, normoactive bowel sounds. No guarding, no rebound. No masses. EXTREMITIES: Normal range of motion, no edema. No clubbing or cyanosis. No cords , erythema, or tenderness. NEUROLOGICAL: Cranial nerves II through XII intact. Motor strength is 5/5 in both the upper and lower extremities. Sensation intact bilaterally. Normal speech. Normal gait, no ataxia. SKIN: Warm, dry, normal turgor, no rashes or lesions noted. Documentation prepared by Chacha Ruiz, acting as medical staff services manager for Julianna Hicks MD. <Chacha Mtota - Last Filed: 04/27/18 00:25> - Resident Resident Name: Juanito Cheatham - ED Attending Attestation I have performed the following: I have examined & evaluated the patient, The case was reviewed & discussed with the resident, I agree w/resident's findings & plan, Exceptions are as noted - HPI HPI: 04/26/18 23:50 57 yo male p/w headache and normal blood pressure. He is convinced that if his BP is elevated he will always get a headache. ct scan of head is negative for any acute intracranial pathology He had no focal neuro deficits he is unhappy with his BP meds but I reviewed his BPs and they have always been normotensive when he comes to the ER -I discussed the possibility that he maybe having migraines but he said " it is not a headache if it hurts in the back of my head" labs reviewed and normal renal function tests - Medical Decision Making 04/27/18 20:12 imp migraines,anxiety,essentail HTN plan follow up with Dr Galarza <Julianna Hicks - Last Filed: 04/27/18 20:13>
--- NOTE | 2018-04-27 16:27 | EKG ---
Test Reason : Blood Pressure : / mmHG Vent. Rate : 066 BPM Atrial Rate : 066 BPM P-R Int : 158 ms QRS Dur : 112 ms QT Int : 402 ms P-R-T Axes : 078 -06 056 degrees QTc Int : 421 ms NORMAL SINUS RHYTHM POSSIBLE LEFT ATRIAL ENLARGEMENT INCOMPLETE RIGHT BUNDLE BRANCH BLOCK BORDERLINE ECG Confirmed by MD YOJANA, KATHERINE ([id number]) on 04/27/2018 4:27:03 PM Referred By: Confirmed By:KATHERINE DIAL MD
== END 2018-04-27 00:13 | disposition home or self-care (01) ==
LOC: JER 20:44
DX: G43.909 Migraine, unspecified, not intractable, without status migrainosus (principal); I10 Essential (primary) hypertension; E78.5 Hyperlipidemia, unspecified; E11.9 Type 2 diabetes mellitus without complications; J45.909 Unspecified asthma, uncomplicated; E78.00 Pure hypercholesterolemia, unspecified
CPT/HCPCS: 36415; 70450-TC; 80053; 85025; 85610; 93005; 93010; 99282-25

== ENCOUNTER 2018-05-03 16:56 | Emergency (ER) | payer OTHER ==
[2018-05-03 17:21] VITALS: TEMP 98; BMI 30.7
--- NOTE | 2018-05-03 17:45 | PDOC ---
History of Present Illness - General Chief Complaint: Blood Pressure Problem Stated Complaint: HIGH BP Time Seen by Provider: 05/03/18 17:44 - History of Present Illness Initial Comments: 57yo M with PMH of HTN, HLD, DM presenting to the ED after a high blood pressure reading. Per chart review, this is his fourth visit to this ED for similar complaints in the past two weeks. Patient reports that he checks his blood pressure anytime he feels poorly. He felt heart palpitations and had one episode of NBNB vomiting around 2pm today, checked his blood pressure, and saw that it was in the systolic 190s. Patient subsequently self-medicated with his blood pressure medication: Amlodipine 60, Hydralazine 25, Labetolol 200, Amlodipine 30, and Labetolol 100. Denies chest pain or shortness of breath. He has seen a optometric coordinator in the [facility] (unknown which doctor) and was advised that he needs to schedule a stress test. Denies fever or chills. Past History - Past Medical History Allergies/Adverse Reactions: Allergies Allergy/AdvReac Type Severity Reaction Status Date / Time No Known Allergies Allergy Verified 04/26/18 20:52 Home Medications: Ambulatory Orders Sitagliptin Phos/Metformin HCl [Janumet Xr 50-1,000 mg Tablet] 1 each PO BID 04/27 Amlodipine Besylate/Benazepril [Lotrel 5-20 mg Capsule] 1 each PO BID 04/25/18 Clopidogrel Bisulfate [Plavix] 75 mg PO DAILY 04/25/18 [place]-3/Dha/Epa/Fish Oil [[place] 3 500 Softgel] 2 each PO BID 04/25/18 Atorvastatin Calcium 40 mg PO DAILY 05/03/18 Fenofibrate,Micronized [Fenofibrate] 134 mg PO DAILY 05/03/18 Labetalol HCl [Normodyne -] 200 mg PO BID 05/03/18 Sertraline HCl 50 mg PO DAILY 05/03/18 Valsartan [Diovan] 40 mg PO DAILY #30 tablet 05/03/18 hydrALAZINE HCL [Apresoline -] 50 mg PO BID 05/03/18 Asthma: Yes COPD: No CHF: No Diabetes: Yes HTN: Yes Hypercholesterolemia: Yes - Surgical History Abdominal Surgery: Yes (HERNIA) - Immunization History Immunization Up to Date: No - Suicide/Smoking/Psychosocial Hx Smoking History: Current every day smoker Have you smoked in the past 12 months: No Number of Cigarettes Smoked Daily: 20 Information on smoking cessation initiated: No 'Breaking Loose' booklet given: 03/30/18 Hx Alcohol Use: No Drug/Substance Use Hx: No Review of Systems - Review of Systems Comments:: Constitutional: no fever, no chills HEENT: no throat pain, no dysphagia Cardiovascular: no chest pain, +palpitations Respiratory: no cough, no shortness of breath Gastrointestinal: no abdominal pain, +nausea, +vomiting Genitourinary: no dysuria, no frequency Musculoskeletal: no myalgia, no arthralgia Skin: no rash, no itching Neurologic: +headache, no dizziness *Physical Exam - Vital Signs Last Vital Signs Temp Pulse Resp BP Pulse Ox 98.0 F 82 18 128/66 96 05/03/18 17:07 05/03/18 17:07 05/03/18 17:07 05/03/18 17:07 05/03/18 17:07 - Physical Exam Comments: General: Awake, alert, and fully oriented; anxious Head: No signs of trauma Eyes: EOMI, sclera anicteric ENT: Moist mucus membranes Neck: Normal ROM, supple Lungs: Lungs clear, Normal breath sounds Cardio: Regular rhythm, S1 and S2 present Abdomen: Soft, nontender. No guarding, no rebound, no masses Extremities: Normal range of motion, Distal pulses present SKIN: Warm, Dry, normal turgor Neurologic: Cranial nerves II through XII intact. Normal speech, sensation, strength, coordination, and gait. Moderate Sedation - Procedure Monitoring Vital Signs: Procedure Monitoring Vital Signs Temperature 98.0 F 05/03/18 17:07 Pulse Rate 82 05/03/18 17:07 Respiratory Rate 18 05/03/18 17:07 Blood Pressure 128/66 05/03/18 17:07 O2 Sat by Pulse Oximetry (%) 96 05/03/18 17:07 ED Treatment Course - LABORATORY CBC & Chemistry Diagram: 05/03/18 18:50 05/03/18 18:50 Medical Decision Making - Medical Decision Making 57yo M with PMH of HTN, HLD, DM presenting to the ED after a high blood pressure reading. -DDX including but not limited to thryoid disorder,ACS, dysrhythmia -EKG: rate 82, QTc 472, NSR -Labs: Tpn negative, no leukocytosis or anemia, TSH normal -650mg Tylenol po for patient's minor headache 05/03/18 19:51 Patient complaining of worsening headache; decision made to order CTA Head to assess for aneurysm. 05/03/18 22:[address] for [address] Sinha ordered patient diovan. Advised patient to follow-up with primary care doctor. 05/03/18 22:38 Plan to discharge home 05/03/18 22:47 *DC/Admit/Observation/Transfer Diagnosis at time of Disposition: History of blood pressure problems - Discharge Dispostion Disposition: HOME Condition at time of disposition: Stable - Prescriptions Prescriptions: Valsartan [Diovan] 40 mg PO DAILY #30 tablet - Referrals Referrals: Zana Alarcon MD [Primary Care Provider] - - Patient Instructions Printed Discharge Instructions: DI for Migraine, DI for High Blood Pressure Additional Instructions: You came into this ED for high blood pressure reading. CTA of your head did not show an aneurysm. Follow-up with a primary care doctor this week to discuss this ED visit and to further evaluate your blood pressure. Your workup is not complete until you do so. Medical attention is required if: you experience persistent symptoms, severe headache, have a seizure, have chest pain, or have focal numbness or weakness. If you think you are having an emergency, call for emergency medical services or present to the emergency department right away - Post Discharge Activity
[2018-05-03] MEDS ORDERED: ACETAMINOPHEN 325 MG TABLET (FP) PO ONE (18:53)
[2018-05-03 18:57] VITALS: BP 124/64; PULSE 68
[2018-05-03] MEDS ORDERED: ACETAMINOPHEN 325 MG TABLET (FP) ONE (19:00)
[2018-05-03 19:11] LABS: BASO % 0.7 % (0-2.0); EOS % 2.6 % (0-4.5); HEMATOCRIT 33.8 % (35.4-49); HEMOGLOBIN 12.2 GM/dL (11.7-16.9); LYMPH % 31.9 % (8-40); MCH 33.1 pg (25.7-33.7); MCHC 36.2 g/dl (32.0-35.9); MEAN CELL VOLUME 91.3 fl (80-96); MEAN PLT VOLUME 7.7 fl (7.5-11.1); MONO % 6.7 % (3.8-10.2); NEUT % 58.1 % (42.8-82.8); PLATELET COUNT 285 K/MM3 (134-434); RDW 13.3 % (11.9-15.9); WHITE BLOOD COUNT 7.1 K/mm3 (4.0-10.0)
[2018-05-03 19:51] LABS: ALBUMIN 3.7 g/dl (3.4-5.0); ALK PHOS 102 U/L (45-117); ANION GAP 5 MMOL/L (8-16); BILIRUBIN,TOTAL 0.2 mg/dL (0.2-1); BLOOD UREA NITROGEN 11 mg/dL (7-18); CALCIUM 8.7 mg/dL (8.5-10.1); CHLORIDE 106 mmol/L (98-107); CO2 29 mmol/L (21-32); CREATININE 0.8 mg/dL (0.55-1.3); GLUCOSE,RANDOM 134 mg/dL (74-106); POTASSIUM 3.8 mmol/L (3.5-5.1); SGOT/AST 22 U/L (15-37); SGPT/ALT 29 U/L (13-61); SODIUM 140 mmol/L (136-145); TOT PROT 6.2 g/dl (6.4-8.2)
--- NOTE | 2018-05-03 20:15 | PDOC ---
Attending Attestation - HPI HPI: 05/03/18 20:20 The patient is a 57 year old male, with a significant PMH of hypertension, hyperlipidemia and diabetes, who presents to the emergency department with a complaint of elevated blood pressure and headache. The patient states around 2 pm he did not feel well and endorses one episode of nausea with emesis (non bloody, non bilious). The patient states he then took his blood pressure on a home blood pressure device and noted his systolic was approx 190. The patient reports taking 1 of his Amlodipine 60 mg prior to arrival. The patient states he was concerned of his elevated blood pressure reading which prompted the ED visit. The patient denies chest pain, shortness of breath and dizziness. Denies fever, chills, diarrhea and constipation. Denies dysuria, frequency, urgency and hematuria. Allergies: None reported. Past Surgical History: Hernia Repair. Social History: Current everyday smoker (1 pack/day x 15 years). Denies alcohol or drug use. PCP: Dr. Galarza Documentation prepared by Isak Das, acting as medical massage therapist for Bella Sinha MD. - Physicial Exam PE: 05/03/18 20:23 GENERAL: Awake, alert, and fully oriented, in no acute distress HEAD: No signs of trauma EYES: PERRLA, EOMI, sclera anicteric, conjunctiva clear ENT: Auricles normal inspection, hearing grossly normal, nares patent, oropharynx clear without exudates. Moist mucosa NECK: Normal ROM, supple, no lymphadenopathy, JVD, or masses LUNGS: Breath sounds equal, clear to auscultation bilaterally. No wheezes, and no crackles HEART: Regular rate and rhythm, normal S1 and S2, no murmurs, rubs or gallops ABDOMEN: Soft, nontender, normoactive bowel sounds. No guarding, no rebound. No masses EXTREMITIES: Normal range of motion, no edema. No clubbing or cyanosis. No cords, erythema, or tenderness NEUROLOGICAL: Cranial nerves II through XII grossly intact. Normal speech, normal gait SKIN: Warm, Dry, normal turgor, no rashes or lesions noted. <Isak Das - Last Filed: 05/03/18 20:23> - Resident Resident Name: Ninfa Guerrero - ED Attending Attestation I have performed the following: I have examined & evaluated the patient, The case was reviewed & discussed with the resident, I agree w/resident's findings & plan - Medical Decision Making 05/04/18 00:58 Pt returns for HOLLAND after BP went up again today. Pt states that he checks his BP thru the day and that when his BP goes up he gets anxious, takes extra dose of meds and feels HOLLAND. Today CTA is normal. Exam normal, and BP is back to normal as he took extra meds. Pt will be started on lowest dose of diovan. Pt states that he calls PMD who tells him to come to the ER, as does his cards; ER docs tell him to follow with cards and PMD. I saw him last time and asked him to discuss diovan use with PMD. Pt returns now. I will start him on diovan <Bella Sinha - Last Filed: 05/04/18 01:01>
--- NOTE | 2018-05-04 16:57 | EKG ---
Test Reason : Blood Pressure : / mmHG Vent. Rate : 082 BPM Atrial Rate : 082 BPM P-R Int : 152 ms QRS Dur : 112 ms QT Int : 404 ms P-R-T Axes : 069 -17 032 degrees QTc Int : 472 ms NORMAL SINUS RHYTHM POSSIBLE LEFT ATRIAL ENLARGEMENT LOW VOLTAGE QRS INCOMPLETE RIGHT BUNDLE BRANCH BLOCK BORDERLINE ECG WHEN COMPARED WITH ECG OF 26-APR-2018 20:58, NONSPECIFIC T WAVE ABNORMALITY NOW EVIDENT IN ANTERIOR LEADS Confirmed by MD Dimas, Jose ([id number]) on 05/04/2018 4:56:25 PM Referred By: Confirmed By:Jose Cochran MD
== END 2018-05-03 23:25 | disposition home or self-care (01) ==
LOC: JER 16:56
DX: I10 Essential (primary) hypertension (principal); E11.9 Type 2 diabetes mellitus without complications; Z79.84 Long term (current) use of oral hypoglycemic drugs; E78.00 Pure hypercholesterolemia, unspecified
CPT/HCPCS: 36415; 70496-TC; 80053; 84443; 84484; 85025; 93005; 93010; 99284-25

== ENCOUNTER 2018-06-24 16:26 | Observation (INO) | payer OTHER ==
[2018-06-24 16:32] VITALS: BP 113/59; PULSE 83; TEMP 98.6; BMI 31.3
--- NOTE | 2018-06-24 16:38 | PDOC ---
Rapid Medical Evaluation Chief Complaint: Congestive Heart Failure Time Seen by Provider: 06/24/18 16:35 Medical Evaluation: Allergies Allergy/AdvReac Type Severity Reaction Status Date / Time No Known Allergies Allergy Verified 04/26/18 20:52 Vital Signs Temp Pulse Resp BP Pulse Ox 98.6 F 83 16 113/59 L 95 06/24/18 16:29 06/24/18 16:29 06/24/18 16:29 06/24/18 16:29 06/24/18 16:29 06/24/18 16:35 I have performed a brief in-person evaluation of this patient. The patient presents with a chief complaint of: sent in by PCP Dr. Galarza to r/ o CHF due to 1 month h/o SOB, and b/l peripheral edema. according to script sent by PCP, PT had O2 sat of 84%RA. Pt denies CP Pertinent physical exam findings: A&O x 3. RRR. 96% RA O2 sat I have ordered the following: cbc, cmp, BNP, CXR The patient will proceed to the ED for further evaluation. Discharge Disposition - Diagnosis SOB (shortness of breath) - Discharge Dispostion Condition at time of disposition: Stable - Referrals - Patient Instructions - Post Discharge Activity
[2018-06-24 16:54] LABS: BASO % 1.1 % (0-2.0); EOS % 2.9 % (0-4.5); HEMATOCRIT 34.5 % (35.4-49); LYMPH % 28.8 % (8-40); MCHC 34.9 g/dl (32.0-35.9); MEAN CELL VOLUME 94.6 fl (80-96); MEAN PLT VOLUME 7.3 fl (7.5-11.1); MONO % 6.2 % (3.8-10.2); PLATELET COUNT 274 K/MM3 (134-434); RBC 3.65 M/mm3 (4.00-5.60); RDW 13.1 % (11.9-15.9); WHITE BLOOD COUNT 7.8 K/mm3 (4.0-10.0)
--- NOTE | 2018-06-24 17:08 | PDOC ---
History of Present Illness - General History Source: Patient Exam Limitations: No Limitations - History of Present Illness Initial Comments: 06/24/18 17:51 The patient is a 57 year old male with a PMH of HTN, DM, and HLD who presents to the ER with mild shortness of breath and generalized weakness for the past 3 weeks. Patient states the shortness of breath is exacerbated with exertion. Patient is also complaining of bilateral leg swelling, that is worse on the left lower extremity. Patient was seen by Dr. Galarza, his PCP, today and was told to come to the ER for further evaluation. The patient denies chest pain, headache and dizziness. Denies fever, chills, nausea, vomit, diarrhea and constipation. Denies dysuria, frequency, urgency and hematuria. Allergies: NKA Past surgical history: hernia repair Social history: No reported alcohol or drug use. Current every day smoker, 2 packs per day for 16 years. PCP: Dr. Galarza <Angela Mercado - Last Filed: 06/24/18 18:26> <Rossana Franco - Last Filed: 06/24/18 20:10> - General Chief Complaint: Congestive Heart Failure Stated Complaint: solen leg Time Seen by Provider: 06/24/18 16:35 Past History <Angela Mercado - Last Filed: 06/24/18 18:26> - Past Medical History Asthma: Yes COPD: No CHF: No Diabetes: Yes HTN: Yes Hypercholesterolemia: Yes - Surgical History Abdominal Surgery: Yes (HERNIA) - Immunization History Immunization Up to Date: No - Suicide/Smoking/Psychosocial Hx Smoking History: Current every day smoker Have you smoked in the past 12 months: No Number of Cigarettes Smoked Daily: 10 Information on smoking cessation initiated: No 'Breaking Loose' booklet given: 03/30/18 Hx Alcohol Use: No Drug/Substance Use Hx: No <Rossana Franco - Last Filed: 06/24/18 20:10> - Past Medical History Allergies/Adverse Reactions: Allergies Allergy/AdvReac Type Severity Reaction Status Date / Time No Known Allergies Allergy Verified 06/24/18 17:55 Home Medications: Ambulatory Orders Sitagliptin Phos/Metformin HCl [Janumet Xr 50-1,000 mg Tablet] 1 each PO BID 04/27 Amlodipine Besylate/Benazepril [Lotrel 5-20 mg Capsule] 1 each PO BID 04/25/18 Clopidogrel Bisulfate [Plavix] 75 mg PO DAILY 04/25/18 [place]-3/Dha/Epa/Fish Oil [[place] 3 500 Softgel] 2 each PO BID 04/25/18 Atorvastatin Calcium 40 mg PO DAILY 05/03/18 Fenofibrate,Micronized [Fenofibrate] 134 mg PO DAILY 05/03/18 Labetalol HCl [Normodyne -] 200 mg PO BID 05/03/18 Sertraline HCl 50 mg PO DAILY 05/03/18 Valsartan [Diovan] 40 mg PO DAILY #30 tablet 05/03/18 hydrALAZINE HCL [Apresoline -] 50 mg PO BID 05/03/18 Review of Systems - Review of Systems Able to Perform ROS?: Yes Comments:: 06/24/18 18:29 ADULT ROS GENERAL/CONSTITUTIONAL: No fever or chills. (+) weakness. HEAD, EYES, EARS, NOSE AND THROAT: No change in vision. No ear pain or discharge. No sore throat. CARDIOVASCULAR: No chest pain. (+) shortness of breath. RESPIRATORY: No cough, wheezing, or hemoptysis. GASTROINTESTINAL: No nausea, vomiting, diarrhea or constipation. GENITOURINARY: No dysuria, frequency, or change in urination. MUSCULOSKELETAL: No joint or muscle swelling or pain. No neck or back pain. SKIN: No rash NEUROLOGIC: No headache, vertigo, loss of consciousness, or change in strength/ sensation. ENDOCRINE: No increased thirst. No abnormal weight change. HEMATOLOGIC/LYMPHATIC: No anemia, easy bleeding, or history of blood clots. ALLERGIC/IMMUNOLOGIC: No hives or skin allergy. <Angela Mercado - Last Filed: 06/24/18 18:26> *Physical Exam - Vital Signs Last Vital Signs Temp Pulse Resp BP Pulse Ox 98.6 F 83 16 113/59 L 95 06/24/18 16:29 06/24/18 16:29 06/24/18 16:29 06/24/18 16:29 06/24/18 16:29 - Physical Exam Comments: 06/24/18 18:26 ADULT EXAM GENERAL: Awake, alert, and fully oriented, in no acute distress LUNGS: Breath sounds equal, clear to auscultation bilaterally. No wheezes, and no crackles HEART: Regular rate and rhythm, normal S1 and S2, no murmurs, rubs or gallops ABDOMEN: Soft, nontender, nondistended. EXTREMITIES: Normal range of motion. (+) 2+ pitting edema bilaterally to mid calf. NEUROLOGICAL: Cranial nerves II through XII grossly intact. Ambulatory with a steady gait. SKIN: Warm, Dry, normal turgor, no rashes or lesions noted. <Angela Mercado - Last Filed: 06/24/18 18:26> - Vital Signs Last Vital Signs Temp Pulse Resp BP Pulse Ox 98.6 F 83 16 113/59 L 95 06/24/18 16:29 06/24/18 16:29 06/24/18 16:29 06/24/18 16:29 06/24/18 16:29 <Rossana Franco - Last Filed: 06/24/18 20:10> Moderate Sedation - Procedure Monitoring Vital Signs: Procedure Monitoring Vital Signs Temperature 98.6 F 06/24/18 16:29 Pulse Rate 83 06/24/18 16:29 Respiratory Rate 16 06/24/18 16:29 Blood Pressure 113/59 L 06/24/18 16:29 O2 Sat by Pulse Oximetry (%) 95 06/24/18 16:29 <Angela Mercado - Last Filed: 06/24/18 18:26> - Procedure Monitoring Vital Signs: Procedure Monitoring Vital Signs Temperature 98.6 F 06/24/18 16:29 Pulse Rate 83 06/24/18 16:29 Respiratory Rate 16 06/24/18 16:29 Blood Pressure 113/59 L 06/24/18 16:29 O2 Sat by Pulse Oximetry (%) 95 06/24/18 16:29 <Rossana Franco - Last Filed: 06/24/18 20:10> ED Treatment Course - LABORATORY CBC & Chemistry Diagram: 06/24/18 16:47 06/24/18 16:47 - ADDITIONAL ORDERS Additional order review: Laboratory Results 06/24/18 06/24/18 16:47 16:47 Sodium 138 Potassium 4.3 Chloride 105 Carbon Dioxide 28 Anion Gap 5 L BUN 24 H Creatinine 1.1 Creat Clearance w eGFR > 60 Random Glucose 110 H Calcium 9.1 Total Bilirubin 0.3 AST 14 L ALT 18 Alkaline Phosphatase 48 Creatine Kinase 114 B-Natriuretic Peptide 134.0 H Total Protein 7.0 Albumin 4.1 06/24/18 16:47 RBC 3.65 L MCV 94.6 MCHC 34.9 RDW 13.1 MPV 7.3 L Neutrophils % 61.0 Lymphocytes % 28.8 Monocytes % 6.2 Eosinophils % 2.9 Basophils % 1.1 <Angela Mercado - Last Filed: 06/24/18 18:26> - LABORATORY CBC & Chemistry Diagram: 06/24/18 16:47 06/24/18 16:47 - ADDITIONAL ORDERS Additional order review: 06/24/18 16:47 RBC 3.65 L MCV 94.6 MCHC 34.9 RDW 13.1 MPV 7.3 L Neutrophils % 61.0 Lymphocytes % 28.8 Monocytes % 6.2 Eosinophils % 2.9 Basophils % 1.1 <Rossana Franco - Last Filed: 06/24/18 20:10> Medical Decision Making - Medical Decision Making 06/24/18 20:03 Pt presents to the ED complaining of shortness of breath that has been persistent for three weeks. Found to be hypoxic on exertion in PMDs office. + mild hypoxia and shortness of breath after exertion in the ED. Differential included CHF and COPD, although CHF less likely given recent negative stress with normal EF. CXR, labs and cardiac enzymes negative. Case discussed with Dr. Galarza, who recommended OBS admisson and non contrast CT chest. Patient is refusing to be admitted and wants to leave AMA. He understands the risk of worsening shortness of breath and hypoxia, heart failure, and . <Rossana Franco - Last Filed: 06/24/18 20:10> *DC/Admit/Observation/Transfer - Attestations Scribe Attestion: 06/24/18 18:29 Documentation prepared by Angela Mercado, acting as emergency medical technician for Rossana Franco MD. <Angela Mercado - Last Filed: 06/24/18 18:26> - Discharge Dispostion Decision to Admit order: Yes <Rossana Franco - Last Filed: 06/24/18 20:10> Diagnosis at time of Disposition: SOB (shortness of breath) - Discharge Dispostion Disposition: AGAINST MEDICAL ADVICE Condition at time of disposition: Stable
[2018-06-24 17:23] LABS: ALBUMIN 4.1 g/dl (3.4-5.0); ALK PHOS 48 U/L (45-117); ANION GAP 5 MMOL/L (8-16); BILIRUBIN,TOTAL 0.3 mg/dL (0.2-1); BLOOD UREA NITROGEN 24 mg/dL (7-18); CALCIUM 9.1 mg/dL (8.5-10.1); CHLORIDE 105 mmol/L (98-107); CO2 28 mmol/L (21-32); CREATININE 1.1 mg/dL (0.55-1.3); GLUCOSE,RANDOM 110 mg/dL (74-106); POTASSIUM 4.3 mmol/L (3.5-5.1); SGOT/AST 14 U/L (15-37); SGPT/ALT 18 U/L (13-61); SODIUM 138 mmol/L (136-145)
[2018-06-24] MEDS ORDERED: predniSONE 20 MG TABLET (UD) PO ONE (19:14)
[2018-06-24] MEDS ORDERED: ALBUTEROL SO4 2.5/IPRATROPIUM 0.5 INH SOL 3 ML VIAL.NEB. NEB SCH (19:15)
[2018-06-24] MEDS ORDERED: ALBUTEROL SO4 2.5/IPRATROPIUM 0.5 INH SOL 3 ML VIAL.NEB. NEB ONE (19:35)
[2018-06-24] MEDS ORDERED: predniSONE 20 MG TABLET (UD) ONE (19:35)
[2018-06-24] MEDS ORDERED: INSULIN SLIDING SCALE (NOVOLOG) 1 VIAL SQ SCH (22:00)
[2018-06-25] MEDS ORDERED: INSULIN SLIDING SCALE (NOVOLOG) 1 VIAL SQ SCH (07:00)
[2018-06-25] MEDS ORDERED: ALBUTEROL SO4 2.5/IPRATROPIUM 0.5 INH SOL 3 ML VIAL.NEB. NEB PRN (07:14)
[2018-06-25] MEDS ORDERED: ACETAMINOPHEN 325 MG TABLET (FP) PO PRN (07:14)
== END 2018-06-24 20:15 | disposition left against medical advice (07) ==
LOC: JER 16:26 → JERBED 19:14
PROVIDERS: ADMIT Internal Medicine; ATTEND Internal Medicine
PROC: 3E0F7GC Introduction of Other Therapeutic Substance into Respiratory Tract, Via Natural or Artificial Opening (ICD-10-PCS; principal; 2018-06-24)
DX: R06.02 Shortness of breath (principal); I10 Essential (primary) hypertension; E11.9 Type 2 diabetes mellitus without complications; E78.5 Hyperlipidemia, unspecified; J45.909 Unspecified asthma, uncomplicated; F17.210 Nicotine dependence, cigarettes, uncomplicated; Z79.84 Long term (current) use of oral hypoglycemic drugs
CPT/HCPCS: 36415; 71046-TC-FY; 80053; 82550; 83880; 84484; 85025; 85379; 94640; 99281-25; G0378

== ENCOUNTER 2018-07-13 22:25 | Emergency (ER) | payer OTHER ==
[2018-07-13 22:39] VITALS: BP 123/55; PULSE 86; TEMP 98.2; BMI 31.3
[2018-07-14] MEDS ORDERED: DEXTROSE 50%-WATER - 25 GM/50 ML VIAL IVPUSH ONE (00:24)
[2018-07-14] MEDS ORDERED: DEXTROSE 50%-WATER - 25 GM/50 ML VIAL ONE (00:33)
--- NOTE | 2018-07-14 00:57 | PDOC ---
History of Present Illness - General History Source: Patient Exam Limitations: No Limitations - History of Present Illness Initial Comments: 07/14/18 00:57 The patient is a 57 year old male, with a significant past medical history of hypertension, hyperlipidemia and diabetes, who presents to the emergency department with, hypoglycemia. Patient endorses taking his weekly Trulicity today along with his hypertension medications. He notes tonight while in bed beginning to feel diaphoretic thus, he checked his blood glucose and obtained a reading of 90 prompting him to drink Nutrament and orange juice then reporting to the ER. He denies any recent fevers, chills, headache or dizziness. He denies any recent nausea, vomit, diarrhea or constipation. He denies any recent chest pain or shortness of breath. He denies any recent dysuria, frequency, urgency or hematuria. Allergies: NKA Past surgical history: Hernia Repair. Social History: Smoker (1 pack/day x 15 years). Denies recreational drug use. Primary Care Physician: Dr. Galarza <Lupillo Lopez - Last Filed: 07/14/18 00:57> <Julianna Hicks - Last Filed: 07/14/18 01:28> - General Chief Complaint: Blood Sugar Problem Stated Complaint: LOW BLOOD SUGAR PROBLEM Time Seen by Provider: 07/13/18 23:48 Past History <Lupillo Lopez - Last Filed: 07/14/18 00:57> - Past Medical History Asthma: Yes COPD: No CHF: No Diabetes: Yes HTN: Yes Hypercholesterolemia: Yes - Surgical History Abdominal Surgery: Yes (HERNIA) - Immunization History Immunization Up to Date: No - Suicide/Smoking/Psychosocial Hx Smoking History: Current every day smoker Have you smoked in the past 12 months: Yes Number of Cigarettes Smoked Daily: 20 Information on smoking cessation initiated: No 'Breaking Loose' booklet given: 03/30/18 Hx Alcohol Use: No Drug/Substance Use Hx: No <Julianna Hicks - Last Filed: 07/14/18 01:28> - Past Medical History Allergies/Adverse Reactions: Allergies Allergy/AdvReac Type Severity Reaction Status Date / Time No Known Allergies Allergy Verified 07/13/18 22:40 Home Medications: Ambulatory Orders Sitagliptin Phos/Metformin HCl [Janumet Xr 50-1,000 mg Tablet] 1 each PO BID 04/27 Amlodipine Besylate/Benazepril [Lotrel 5-20 mg Capsule] 1 each PO BID 04/25/18 Clopidogrel Bisulfate [Plavix] 75 mg PO DAILY 04/25/18 [place]-3/Dha/Epa/Fish Oil [[place] 3 500 Softgel] 2 each PO BID 04/25/18 Atorvastatin Calcium 40 mg PO DAILY 05/03/18 Fenofibrate,Micronized [Fenofibrate] 134 mg PO DAILY 05/03/18 Labetalol HCl [Normodyne -] 200 mg PO BID 05/03/18 Sertraline HCl 50 mg PO DAILY 05/03/18 Valsartan [Diovan] 40 mg PO DAILY #30 tablet 05/03/18 hydrALAZINE HCL [Apresoline -] 50 mg PO BID 05/03/18 Review of Systems - Review of Systems Able to Perform ROS?: Yes Comments:: 07/14/18 00:58 CONSTITUTIONAL: Present: Hypoglycemia. Absent: fever, chills, generalized weakness, malaise, loss of appetite HEENT: Absent: rhinorrhea, nasal congestion, throat pain, throat swelling, difficulty swallowing, mouth swelling, ear pain, eye pain, visual Changes CARDIOVASCULAR: Absent: chest pain, syncope, palpitations, irregular heart rate, lightheadedness , peripheral edema RESPIRATORY: Absent: cough, shortness of breath, dyspnea with exertion, orthopnea, wheezing, stridor, hemoptysis GASTROINTESTINAL: Absent: abdominal pain, abdominal distension, nausea, vomiting, diarrhea, constipation, melena, hematochezia GENITOURINARY: Absent: dysuria, frequency, urgency, hesitancy, hematuria, flank pain, genital pain MUSCULOSKELETAL: Absent: myalgia, arthralgia, joint swelling SKIN: Absent: rash, itching, pallor HEMATOLOGIC/IMMUNOLOGIC: Absent: easy bleeding, easy bruising, lymphadenopathy, frequent infections ENDOCRINE: Absent: unexplained weight gain, unexplained weight loss, heat intolerance, cold intolerance NEUROLOGIC: Absent: headache, focal weakness or paresthesias, dizziness, unsteady gait, seizure, mental status changes, bladder or bowel incontinence PSYCHIATRIC: Absent: anxiety, depression, suicidal or homicidal ideation, hallucinations. All Other Systems: Reviewed and Negative <Lupillo Lopez - Last Filed: 07/14/18 00:57> *Physical Exam - Vital Signs Last Vital Signs Temp Pulse Resp BP Pulse Ox 98.2 F 86 21 H 123/55 L 100 07/13/18 22:37 07/13/18 22:37 07/13/18 22:37 07/13/18 22:37 07/13/18 22:37 - Physical Exam Comments: 07/14/18 00:58 GENERAL: Well developed, well nourished. Awake and alert. No acute distress. HEENT: Normocephalic, atraumatic. PERRLA, EOMI. No conjunctival pallor. Sclera are non- icteric. Moist mucous membranes. Oropharynx is clear. NECK: Supple. Full ROM. No JVD. Carotid pulses 2+ and symmetric, without bruits. No thyromegaly. No lymphadenopathy. CARDIOVASCULAR: Regular rate and rhythm. No murmurs, rubs, or gallops. Distal pulses are 2+ and symmetric. PULMONARY: No evidence of respiratory distress. Lungs clear to auscultation bilaterally. No wheezing, rales or rhonchi. ABDOMINAL: Protuberant. Soft. Non-tender. Non-distended. No rebound or guarding. No organomegaly. Normoactive bowel sounds. MUSCULOSKELETAL Normal range of motion at all joints. No bony deformities or tenderness. No CVA tenderness. EXTREMITIES: No cyanosis. No clubbing. No edema. No calf tenderness. SKIN: Warm and dry. Normal capillary refill. No rashes. No jaundice. NEUROLOGICAL: Alert, awake, appropriate. Cranial nerves 2-12 intact. No deficits to light touch and temperature in face, upper extremities and lower extremities. No motor deficits in the in face, upper extremities and lower extremities. Normoreflexic in the upper and lower extremities. Normal speech. Toes are down- going bilaterally. Gait is normal without ataxia. PSYCHIATRIC: Cooperative. Good eye contact. Appropriate mood and affect. <Lupillo Lopez - Last Filed: 07/14/18 00:57> - Vital Signs Last Vital Signs Temp Pulse Resp BP Pulse Ox 98.2 F 86 21 H 123/55 L 100 07/13/18 22:37 07/13/18 22:37 07/13/18 22:37 07/13/18 22:37 07/13/18 22:37 <Julianna Hicks - Last Filed: 07/14/18 01:28> Moderate Sedation - Procedure Monitoring Vital Signs: Procedure Monitoring Vital Signs Temperature 98.2 F 07/13/18 22:37 Pulse Rate 86 07/13/18 22:37 Respiratory Rate 21 H 07/13/18 22:37 Blood Pressure 123/55 L 07/13/18 22:37 O2 Sat by Pulse Oximetry (%) 100 07/13/18 22:37 <Lupillo Lopez - Last Filed: 07/14/18 00:57> - Procedure Monitoring Vital Signs: Procedure Monitoring Vital Signs Temperature 98.2 F 07/13/18 22:37 Pulse Rate 86 07/13/18 22:37 Respiratory Rate 21 H 07/13/18 22:37 Blood Pressure 123/55 L 07/13/18 22:37 O2 Sat by Pulse Oximetry (%) 100 07/13/18 22:37 <Julianna Hicks - Last Filed: 07/14/18 01:28> ED Treatment Course - ADDITIONAL ORDERS Additional order review: Laboratory Results 07/14/18 00:00 POC Glucometer 123 07/14/18 00:00 POC Glucometer 123 - Medications Given in the ED: ED Medications Discontinued Medications Generic Name Dose Route Start Last Admin Trade Name Freq PRN Reason Stop Dose Admin Dextrose 25 gm 07/14/18 00:24 07/14/18 00:56 D50w (Vial) - IVPUSH 07/14/18 00:25 25 gm NOW ONE Administration <Lupillo Lopez - Last Filed: 07/14/18 00:57> - ADDITIONAL ORDERS Additional order review: Laboratory Results 07/14/18 00:00 POC Glucometer 123 07/14/18 00:00 POC Glucometer 123 - Medications Given in the ED: ED Medications Discontinued Medications Generic Name Dose Route Start Last Admin Trade Name Freq PRN Reason Stop Dose Admin Dextrose 25 gm 07/14/18 00:24 07/14/18 00:56 D50w (Vial) - IVPUSH 07/14/18 00:25 25 gm NOW ONE Administration <Julianna Hicks - Last Filed: 07/14/18 01:28> Medical Decision Making - Medical Decision Making 07/14/18 01:26 this pt took his trulicity today and felt that he his glucose was too low because he felt shaky. Denied any chest pain,fever,chills,abdominal pain,cough,dysuria,nausea,vomiting or diarrhea first egg=[id number] and he was very concerned that his glucose would drop while at home and he was given on ampule of dextrose before discharge <Julianna Hicks - Last Filed: 07/14/18 01:28> *DC/Admit/Observation/Transfer - Attestations Scribe Attestion: 07/14/18 00:58 Documentation prepared by Lupillo Lopez, acting as medical customer service representative for Julianna Hicks MD. <Lupillo Lopez - Last Filed: 07/14/18 00:57> <Julianna Hicks - Last Filed: 07/14/18 01:28> Diagnosis at time of Disposition: Diabetes Qualifiers: Diabetes mellitus type: type 2 Diabetes mellitus mcc insulin use: without termite renewal inspector use Diabetes mellitus complication status: with hypoglycemia Diabetes mellitus complication detail: without coma Qualified Code(s): E11.649 - Type 2 diabetes mellitus with hypoglycemia without coma - Discharge Dispostion Disposition: HOME Condition at time of disposition: Stable - Referrals Referrals: Megan Galarza MD [Primary Care Provider] - - Patient Instructions Printed Discharge Instructions: DI for Hyperglycemia -- Adult Additional Instructions: please followup with your doctor this week - Post Discharge Activity
== END 2018-07-14 03:00 | disposition home or self-care (01) ==
LOC: JER 22:25
PROC: 3E0337Z Introduction of Electrolytic and Water Balance Substance into Peripheral Vein, Percutaneous Approach (ICD-10-PCS; principal; 2018-07-13)
DX: E11.649 Type 2 diabetes mellitus with hypoglycemia without coma (principal); Z79.84 Long term (current) use of oral hypoglycemic drugs; I10 Essential (primary) hypertension; E78.5 Hyperlipidemia, unspecified
CPT/HCPCS: 82962; 96374; 99281-25

== ENCOUNTER 2018-07-14 21:32 | Emergency (ER) | payer OTHER ==
[2018-07-14 21:53] VITALS: BP 113/59; PULSE 87; TEMP 98.7; BMI 31.1
--- NOTE | 2018-07-14 21:54 | PDOC ---
Rapid Medical Evaluation Chief Complaint: Blood Sugar Problem Time Seen by Provider: 07/14/18 21:46 Medical Evaluation: Allergies Allergy/AdvReac Type Severity Reaction Status Date / Time No Known Allergies Allergy Verified 07/13/18 22:40 07/14/18 21:51 57 year old with low blood sugars all day, patient unsure if he took an extra dose of trulicity. Pe; patient alert ox3 A: hypoglycemia P: BGM labs patient to the ER for further management of care. 07/14/18 21:54 Discharge Disposition - Diagnosis Hypoglycemia - Referrals - Patient Instructions - Post Discharge Activity
[2018-07-14 22:15] LABS: BASO % 0.9 % (0-2.0); EOS % 3.5 % (0-4.5); HEMATOCRIT 35.2 % (35.4-49); HEMOGLOBIN 12.3 GM/dL (11.7-16.9); MCH 32.4 pg (25.7-33.7); MEAN CELL VOLUME 92.6 fl (80-96); MEAN PLT VOLUME 6.6 fl (7.5-11.1); MONO % 8.1 % (3.8-10.2); NEUT % 58.5 % (42.8-82.8); PLATELET COUNT 517 K/MM3 (134-434); RBC 3.81 M/mm3 (4.00-5.60); RDW 13.6 % (11.9-15.9); WHITE BLOOD COUNT 6.4 K/mm3 (4.0-10.0)
[2018-07-14 22:39] LABS: ALBUMIN 3.7 g/dl (3.4-5.0); ALK PHOS 71 U/L (45-117); ANION GAP 7 MMOL/L (8-16); BILIRUBIN,TOTAL 0.2 mg/dL (0.2-1); BLOOD UREA NITROGEN 14 mg/dL (7-18); CALCIUM 9.8 mg/dL (8.5-10.1); CHLORIDE 104 mmol/L (98-107); CO2 28 mmol/L (21-32); GLUCOSE,RANDOM 167 mg/dL (74-106); POTASSIUM 4.4 mmol/L (3.5-5.1); SGOT/AST 11 U/L (15-37); SGPT/ALT 19 U/L (13-61); SODIUM 139 mmol/L (136-145); TOT PROT 6.8 g/dl (6.4-8.2)
--- NOTE | 2018-07-14 23:04 | PDOC ---
*Physical Exam - Vital Signs Last Vital Signs Temp Pulse Resp BP Pulse Ox 98.7 F 87 18 113/59 L 100 07/14/18 21:50 07/14/18 21:50 07/14/18 21:50 07/14/18 21:50 07/14/18 22:50 - Physical Exam Comments: 07/14/18 23:03 The patient was examined by [LAURA Valenzuela] under my direct supervision. I personally evaluated the patient. I concur with the above findings and the plan of care. 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 No acute issues are present. We 'll advise follow-up with endocrinology for readjustment of diabetic medications. ED Treatment Course - LABORATORY CBC & Chemistry Diagram: 07/14/18 22:06 07/14/18 22:06 - ADDITIONAL ORDERS Additional order review: Laboratory Results 07/14/18 07/14/18 22:06 21:58 Sodium 139 Potassium 4.4 Chloride 104 Carbon Dioxide 28 Anion Gap 7 L BUN 14 Creatinine 1.0 Creat Clearance w eGFR > 60 POC Glucometer 160 Random Glucose 167 H Calcium 9.8 Total Bilirubin 0.2 AST 11 L ALT 19 Alkaline Phosphatase 71 Total Protein 6.8 Albumin 3.7 07/14/18 07/14/18 22:06 21:58 RBC 3.81 L MCV 92.6 MCHC 35.0 RDW 13.6 MPV 6.6 L Neutrophils % 58.5 Lymphocytes % 29.0 Monocytes % 8.1 Eosinophils % 3.5 Basophils % 0.9 POC Glucometer 160 *DC/Admit/Observation/Transfer Diagnosis at time of Disposition: Hypoglycemia - Referrals Referrals: Megan Galarza MD [Primary Care Provider] - - Patient Instructions - Post Discharge Activity
--- NOTE | 2018-07-14 23:06 | PDOC ---
History of Present Illness - General Chief Complaint: Blood Sugar Problem Stated Complaint: HYPOGLYCEMIA Time Seen by Provider: 07/14/18 21:46 History Source: Patient Exam Limitations: No Limitations Past History - Past Medical History Allergies/Adverse Reactions: Allergies Allergy/AdvReac Type Severity Reaction Status Date / Time No Known Allergies Allergy Verified 07/14/18 22:37 Home Medications: Ambulatory Orders Amlodipine Besylate/Benazepril [Lotrel 5-20 mg Capsule] 1 each PO BID 04/25/18 Clopidogrel Bisulfate [Plavix] 75 mg PO DAILY 04/25/18 Atorvastatin Calcium 40 mg PO DAILY 05/03/18 Fenofibrate,Micronized [Fenofibrate] 134 mg PO DAILY 05/03/18 Labetalol HCl [Normodyne -] 200 mg PO BID 05/03/18 Sertraline HCl 50 mg PO DAILY 05/03/18 hydrALAZINE HCL [Apresoline -] 50 mg PO TID 05/03/18 Dulaglutide [Trulicity] 1.5 mg SQ TU 07/14/18 Asthma: Yes COPD: No CHF: No Diabetes: Yes HTN: Yes Hypercholesterolemia: Yes - Surgical History Abdominal Surgery: Yes (HERNIA) - Immunization History Immunization Up to Date: No - Suicide/Smoking/Psychosocial Hx Smoking History: Never smoked Have you smoked in the past 12 months: No Number of Cigarettes Smoked Daily: 20 Information on smoking cessation initiated: No 'Breaking Loose' booklet given: 03/30/18 Hx Alcohol Use: No Drug/Substance Use Hx: No *Physical Exam - Vital Signs Last Vital Signs Temp Pulse Resp BP Pulse Ox 98.7 F 87 18 113/59 L 100 07/14/18 21:50 07/14/18 21:50 07/14/18 21:50 07/14/18 21:50 07/14/18 22:50 - Physical Exam General Appearance: No: Apparent Distress Respiratory/Chest: positive: Lungs Clear, Normal Breath Sounds. negative: Respiratory Distress Cardiovascular: positive: Regular Rhythm, Regular Rate, S1, S2. negative: Murmur Gastrointestinal/Abdominal: positive: Normal Bowel Sounds, Soft. negative: Tender, Distended, Guarding, Rebound Neurologic: positive: Fully Oriented, Alert, Normal Mood/Affect Moderate Sedation - Procedure Monitoring Vital Signs: Procedure Monitoring Vital Signs Temperature 98.7 F 07/14/18 21:50 Pulse Rate 87 07/14/18 21:50 Respiratory Rate 18 07/14/18 21:50 Blood Pressure 113/59 L 07/14/18 21:50 O2 Sat by Pulse Oximetry (%) 100 07/14/18 22:50 ED Treatment Course - LABORATORY CBC & Chemistry Diagram: 07/14/18 22:06 07/14/18 22:06 - ADDITIONAL ORDERS Additional order review: Laboratory Results 07/14/18 07/14/18 22:06 21:58 Sodium 139 Potassium 4.4 Chloride 104 Carbon Dioxide 28 Anion Gap 7 L BUN 14 Creatinine 1.0 Creat Clearance w eGFR > 60 POC Glucometer 160 Random Glucose 167 H Calcium 9.8 Total Bilirubin 0.2 AST 11 L ALT 19 Alkaline Phosphatase 71 Total Protein 6.8 Albumin 3.7 07/14/18 07/14/18 22:06 21:58 RBC 3.81 L MCV 92.6 MCHC 35.0 RDW 13.6 MPV 6.6 L Neutrophils % 58.5 Lymphocytes % 29.0 Monocytes % 8.1 Eosinophils % 3.5 Basophils % 0.9 POC Glucometer 160 Medical Decision Making - Medical Decision Making 57 y/o M hx of HTN, HLD, DM presents feeling his sugar is low. Patient was seen last night for similar complaint. Patient is currently on Trulicity injection once a week and Janumet; states he has been on these meds for years. He stopped his Janumet on his own 5 days ago as noted his sugar was lower than normal and felt he didn't need it; states he was asymptomatic though at the time. Yesterday , he took his Trulicity and since then has noted his sugar will drop and he will have to keep eating sweets to bring it up. States the lowest it was today was 80. Mentions feeling a bit shaky, dizzy and naseous when this occurs. Denies this every occurring before. Denies fever,sob, cp, abd pain, vomiting. Currently states he feels fine. Labs unremarkable Initial FS 160 and repeat again in few hours was 170 Could possibly be increased insulin sensitivity? Patient advised to f/u with his PCP for further care 07/14/18 23:29 *DC/Admit/Observation/Transfer Diagnosis at time of Disposition: Hypoglycemia - Discharge Dispostion Disposition: HOME Condition at time of disposition: Stable Decision to Admit order: No - Referrals Referrals: Megan Galarza MD [Primary Care Provider] - Call tomorrow - Patient Instructions Printed Discharge Instructions: DI for Hypoglycemia Additional Instructions: Thank you for choosing [facility]. It was a pleasure taking care of you. Please follow-up with your doctor tomorrow as you may need adjustment of your diabetic meds Return to the Emergency Department if your symptoms worsen or persist or have other concerning symptoms. - Post Discharge Activity
[2018-07-14 23:09] LABS: INR 1.01 (0.83-1.09); PROTHROMBIN TIME (PATIENT) 11.9 SEC (9.7-13.0)
[2018-07-14 23:12] LABS: ACTIVATED PTT 32.2 SECONDS (25.2-36.5)
== END 2018-07-14 23:49 | disposition home or self-care (01) ==
LOC: JER 21:32
DX: E11.649 Type 2 diabetes mellitus with hypoglycemia without coma (principal); Z79.84 Long term (current) use of oral hypoglycemic drugs; I10 Essential (primary) hypertension; E78.00 Pure hypercholesterolemia, unspecified
CPT/HCPCS: 36415; 80053; 82962; 85025; 85610; 85730; 99283-25

== ENCOUNTER 2018-10-09 18:16 | Emergency (ER) | payer OTHER | END 2018-10-09 19:27 | disposition left against medical advice (07) | LOC: JER 18:16 ==